=== PATIENT | female | born 2000 ===

== ENCOUNTER 2020-08-16 12:20 | Outpatient (CLI) | payer OTHER, SELFPAY ==
[2020-08-16 12:58] LABS: Influenza Control Valid (Valid)
[2020-08-17 15:21] LABS: SARS-CoV-2 RNA PCR Positive
== END 2020-08-16 12:21 | disposition home or self-care (01) ==
PROVIDERS: PCP Nurse Practitioner Family; Visit Provider Nurse Practitioner Family
DX: U07.1 COVID-19 (principal); J02.9 Acute pharyngitis, unspecified
CPT/HCPCS: 36415; 87081; 87635; 87804; 87880; C9803; U0003

== ENCOUNTER 2021-08-16 10:55 | Outpatient (CLI) | payer OTHER, SELFPAY ==
[2021-08-16 11:07] LABS: Basophils Absolute Auto 0.05 K/mm3 (0.00-0.10); Basophils Percent Auto 0.7 % (0.0-1.0); Eosinophils Percent Auto 1.5 % (1.0-6.0); Hematocrit 41.6 % (35.0-49.0); Hemoglobin 14.3 g/dL (12.0-15.0); Immature Granulocyte Absolute 0.02 K/mm3 (0.00-0.00); Immature Granulocyte Percent A 0.3 % (0.0-0.0); Lymphocytes Absolute Auto 2.48 K/mm3 (1.10-4.50); Lymphocytes Percent Auto 36.2 % (18.0-42.0); Mean Corpuscular HGB Conc 34.4 g/dL (32.0-36.0); Mean Platelet Volume 10.3 fl (9.2-11.8); Monocytes Absolute Auto 0.54 K/mm3 (0.10-0.90); Monocytes Percent Auto 7.9 % (2.0-11.0); Neutrophils Absolute Auto 3.7 K/mm3 (1.7-7.2); Neutrophils Percent Auto 53.4 % (50.0-70.0); Platelet Count Result 218 K/mm3 (150-420); Red Blood Count 4.62 M/mm3 (4.20-5.40); Red Cell Distribution Width 12.1 % (11.6-14.4); White Blood Count 6.9 K/mm3 (4.8-10.8)
[2021-08-16 12:15] LABS: Free T4 Free Thyroxine 0.99 ng/dL (0.76-1.46); Thyroid Stimulating Hormone 1.31 uIU/mL (0.36-3.74)
[2021-08-20 19:35] LABS: Vitamin D 25 Hydroxy 29 ng/mL (30-100)
== END 2021-08-16 10:56 | disposition home or self-care (01) ==
LOC: CHSLAB 10:58
PROVIDERS: Visit Provider Obstetrics & Gynecology Gynecology
DX: F41.9 Anxiety disorder, unspecified (principal); E55.9 Vitamin D deficiency, unspecified
CPT/HCPCS: 36415; 82306; 84439; 84443; 85025

== ENCOUNTER 2021-11-07 14:24 | Outpatient (CLI) | payer OTHER, SELFPAY | END 2021-11-07 14:25 | disposition home or self-care (01) | LOC: CHSLAB 14:25 | PROVIDERS: PCP Family Medicine; Visit Provider Family Medicine | DX: Z02.0 Encounter for examination for admission to educational institution (principal) | CPT/HCPCS: 36415; 86787 ==

== ENCOUNTER 2022-01-29 09:46 | Outpatient (CLI) | payer OTHER, SELFPAY ==
[2022-01-29 09:57] LABS: Hematocrit 39.2 % (35.0-49.0); Hemoglobin 13.1 g/dL (12.0-15.0); Mean Corpuscular HGB Conc 33.4 g/dL (32.0-36.0); Mean Corpuscular Hemoglobin 30.4 pg (27.0-31.0); Platelet Count Result 226 K/mm3 (150-420); Red Blood Count 4.31 M/mm3 (4.20-5.40); White Blood Count 6.4 K/mm3 (4.8-10.8)
[2022-01-29 10:58] LABS: Alanine Aminotransferase 20 U/L (14-59); Albumin Level 3.8 g/dL (3.4-5.0); Alkaline Phosphatase 50 U/L (46-116); Anion Gap 10 mmol/L (8-16); Aspartate Amino Transferase 12 U/L (15-37); Bilirubin,Total 0.3 mg/dL (0.00-1.00); Blood Urea Nitrogen 11 mg/dL (7-18); Calcium 8.8 mg/dL (8.5-10.1); Carbon Dioxide 26 mmol/L (21-32); Chloride 112 mmol/L (98-108); Creatine Kinase 86 U/L (26-192); Estimated Glomerular Filt Rate > 60; Ferritin 48 ng/mL (8-252); Folic Acid > 20.0 ng/mL (8.6->20); Glucose 84 mg/dL (70-99); Magnesium 1.8 mg/dL (1.8-2.4); Osmolality Calculated 304 mOsm/kg (285-295); Potassium 4.5 mmol/L (3.5-5.1); Sodium 148 mmol/L (136-145); Total Protein 6.9 g/dL (6.4-8.2); Vitamin B12 206 pg/mL (193-986)
[2022-01-29 11:28] LABS: Thyroid Stimulating Hormone Reflex 0.91 u/IU/mL (0.36-3.74)
== END 2022-01-29 09:47 | disposition home or self-care (01) ==
LOC: CHSLAB 09:48
PROVIDERS: PCP Family Medicine; Visit Provider Family Medicine
DX: M62.81 Muscle weakness (generalized) (principal); E11.9 Type 2 diabetes mellitus without complications; E53.8 Deficiency of other specified B group vitamins
CPT/HCPCS: 36415; 80053; 82550; 82607; 82728; 82746; 83735; 84443; 85027

== ENCOUNTER → 2022-10-16 10:37 | Outpatient (CLI) | payer OTHER, SELFPAY ==
--- NOTE | ~2022-10-16 | US_ITS ---
Pelvic ultrasound. Clinical History: Pelvic pain Technique: Realtime transabdominal and transvaginal scanning of the pelvis was performed. Color flow Doppler and Doppler spectral analysis were performed. Findings: The uterus is anteverted. The endometrial stripe has a thickness of 6 mm. No focal mass is identified. The right ovary measures 2.9 x 1.8 x 2.3 cm. No significant right ovarian or adnexal mass is seen. The left ovary measures 3.3 x 3.3 x 3.5 cm. Small left ovarian cysts are present. No distinct evidence for torsion. There is no evidence of free fluid in the cul de sac. Impression: No significant abnormality seen. Small left ovarian cysts are within normal limits given patient age, require no further follow-up. Reviewed, dictated and finalized at [facility]. [employer] Impression: No significant abnormality seen. Small left ovarian cysts are within normal lazar its given patient age, require no further follow-up.
== END ==
PROVIDERS: PCP Family Medicine; Visit Provider Advanced Practice Midwife
DX: R10.2 Pelvic and perineal pain (principal); N83.202 Unspecified ovarian cyst, left side
CPT/HCPCS: 76856

== ENCOUNTER 2022-12-17 11:45 | Outpatient (CLI) | payer OTHER, SELFPAY ==
--- NOTE | 2022-12-22 13:56 | P.PCNHOL_ITS ---
Holter/Event Monitor Holter/Event Monitor Date of procedure: 12/17/22 Holter/Event Procedure: 48 Hr Holter Monitor Indications: Syncope Conclusion: 1. 48 hour holter monitor on 12/17/22. 2. Underlying rhythm is sinus rhythm. HR range 53-150 bpm; average HR 79 bpm. HR at 150 bpm was at 14:54. 3. There is 1 premature supraventricular complex. No supraventricular tachycardia. 4. There are 27 premature ventricular complexes. No ventricular tachycardia. 5. No sinoatrial or atrioventricular blocks. No significant pauses greater than 2 seconds. 6. Patient reports symptoms of tiredness/jittery, chest pain/headache, fog giness, dizziness, weakness demonstrate sinus rhythm, HR range 60-105 bpm.
== END 2022-12-17 11:46 | disposition home or self-care (01) ==
LOC: CHSCARD 11:46
PROVIDERS: PCP Family Medicine; Visit Provider Family Medicine
DX: R55 Syncope and collapse (principal)
CPT/HCPCS: 93225; 93226

== ENCOUNTER 2022-12-19 14:21 | Outpatient (CLI) | payer OTHER, SELFPAY ==
--- NOTE | 2022-12-19 14:28 | ECHO_ITS ---
Patient Info Name: Lorena Sol Age: 22 years : 2000 Gender: Female Ht: 64 in Wt: 134 lbs BSA: 1.66 m2 HR: 84 bpm BP: 122 / 80 mmHg Technical Quality: Good Exam Date: 12/19/2022 3:16 PM Exam Location: [facility] Patient Status: Outpatient Admit Date: 12/19/2022 Staff Ordering Physician: Liban Carbajal DO Professor Of Biological Sciences: Ari Mei RDCS, RT Attending Provider: Liban Carbajal DO Referring Physician: Solomon MOFFETT; Exam Type: CA echo doppler color flow Study Info Indications R55 - Syncope and collapse Complete two-dimensional, color flow and Doppler transthoracic echocardiogram is performed. Strain analysis performed. Summary 1. Complete two-dimensional, color flow and Doppler transthoracic echocardiogram is performed. 2. Left ventricular chamber dimension is normal. 3. Left ventricular systolic function is normal, estimated at 60-65%. 4. The left ventricular diastolic function is grade I diastolic dysfunction. 5. Global longitudinal strain is normal at -17.6%. 6. There is trace mitral valve regurgitation. 7. There is trace tricuspid valve regurgitation. Left Ventricle Global longitudinal strain is normal at -17.6%. Tissue doppler E/e' is not performed. Left ventricular chamber dimension is normal. Left ventricular systolic function is normal, estimated at 60-65%. The left ventricular diastolic function is grade I diastolic dysfunction. Right Ventricle Right ventricular chamber dimension is normal. Right ventricular systolic function is normal. Left Atria Left atrial chamber dimension is normal. Right Atria Right atrial chamber dimension is normal. Aortic Valve The aortic valve is trileaflet. There is no aortic valve stenosis. There is no aortic valve regurgitation. Pulmonic Valve There is no pulmonic regurgitation. Mitral Valve There is no mitral valve stenosis. There is trace mitral valve regurgitation. Tricuspid Valve There is trace tricuspid valve regurgitation. RVSP is not calculated due to an inadequate TR jet. Pericardium/Pleural There is no pericardial effusion. Inferior Vena Cava Normal inferior vena cava with >50% collapse upon inspiration consistent with normal right atrial pressure, 5 mmHg. Aorta The aortic root size at the sinus of Valsalva is normal. Left Ventricular Outflow Tract Name Value Normal LVOT 2D LVOT Diameter 1.9 cm LVOT Doppler LVOT Peak Velocity 99 cm/s LVOT Peak Gradient 4 mmHg LVOT Mean Gradient 2 mmHg LVOT VTI 17 cm LVOT VTI/AV VTI Ratio 0.7 LVOT Stroke Volume 48 ml Tricuspid Valve Name Value Normal Estimated PAP/RSVP RA Pressure 5 mmHg <=5 Aortic
== END 2022-12-19 14:22 | disposition home or self-care (01) ==
LOC: CHSIMG 14:22
PROVIDERS: PCP Family Medicine; Visit Provider Family Medicine
DX: R55 Syncope and collapse (principal)
CPT/HCPCS: 93306

== ENCOUNTER 2023-01-14 12:30 | Outpatient (RCR) | payer OTHER, SELFPAY ==
--- NOTE | 2022-11-14 10:42 | PTOPEVAL1 ---
Assessment and note entered by Denisa Rodriguez DPT Evaluation Information Assessment Status Evaluation Subjective Information Pt reports pelvic pain. Has also been diagnosed with IBS. Has been having the feeling of menstrual cramps but all the time and it has gotten worse, at times feels stabbing. Pain worsens with movement even walking, sometimes has to take breaks after taking a few steps. Sits with a heating pad often. Reports she skips breakfast because eating seems to increase her pain. 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 Pain has been increasing over the past 3 months. Highest pain 7/10 and lowest 5/10. Urinates 5-6 times a day and none at night. Reports mild pain with urination and difficulty initiating. Denies urine leakage. BM every 2-3 days, typically no pain. Pt is sexually active, with pain. Has had pain with pelvic exam and tampon use seems to make her cramps worse as well. Pt has never been . Menstrual cycle is regular. States she had vestibulitis and got injections for it about 2.5 years ago. Reported Pain Level Pain Score 6: Self Report Assessment PT Clinical Summary The patient is presenting to skilled therapy with a several month history of increasing pelvic pain. She presents with significantly increased pelvic floor muscle tone, difficulty relaxing contraction , and pain with palpation. These muscular impairments are contributing to her pain with walking and other activities, as well as her difficulty initiating urine stream. She will benefit from therapy to address these impairments and safely return to prior level of function. Plan of Care Interventions Hot Pack/Cold Pack,Manual Therapy,Neuro Re- education,Patient/Caregiver Education,Therapeutic Activities,Therapeutic Exercise,Self-Care/Home Management PT Services Indicated Yes Treatment Frequency and 1 time a week for 4 weeks Duration These treatments will address the objective and functional deficits as defined above. The patient will be advanced safely and appropriately in order for the patient to progress towards his/her prior level of function. Additional exercises will be introduced and as well as a comprehensive home exercise program upon discharge, if needed, ?to ensure carryover of functional gains achieved in the clinic. This treatment plan has been reviewed and agreement upon by the patient.
--- NOTE | 2023-01-14 12:44 | PTOPDC ---
Assessment and note entered by Denisa Rodriguez DPT Evaluation Information Assessment Status Discharge Subjective Information Pt reports she is having menstrual cramps due to starting her cycle yesterday but they are only a 1 /10 currently. Highest pain in last week 1/10 after exercising and lowest 0/10. Reports feeling improvements with tampon use and intercourse. Has tried dilator set 2 times without issue. Reported Pain Level Pain Score 1: Self Report Assessment PT Clinical Summary The patient has made excellent progress in therapy . She reports pain only 1/10 highest in the last week and has been able to use tampons without issue. Due to her progress and independence with HEP, plan for discharge this date. She has been educated in how to progress independently and to follow up with MD and/or PT as needed. Plan of Care PT Services Indicated No
== END 2023-01-14 13:47 | disposition home or self-care (01) ==
LOC: ANHPT 12:30
PROVIDERS: PCP Nurse Practitioner Family; Visit Provider Obstetrics & Gynecology Gynecology
DX: R10.2 Pelvic and perineal pain (principal)
CPT/HCPCS: 97110; 97112; 97140; 97161

== ENCOUNTER 2024-11-10 11:36 | Emergency (ER) | payer OTHER, SELFPAY ==
[2024-11-10] VITALS (7 sets, daily range): BP systolic 100–107; BP diastolic 52–70; PULSE 58–86; RESP 14–17; TEMP 36.4–36.6; O2SAT 98–100
--- NOTE | ~2024-11-10 | CT_ITS ---
EXAMINATION: CT abdomen pelvis w con DATE: 11/10/2024 17:14 INDICATION: Nausea and vomiting. Abdominal pain. Recent surgery for endometriosis. TECHNIQUE: Computed tomography (CT) of the abdomen and pelvis was performed with 100 mL Omnipaque 350 intravenous contrast. Automated exposure control and iterative reconstruction technique were employe d. The dose-length product was 288.04 mGy-cm. COMPARISON: None. FINDINGS: The visualized portions of the lung bases are clear without pneumonia or pleural effusion. The heart size is normal. No pericardial effusion. There is free intraperitoneal gas, consistent with recent surgery. The liver demonstrates periportal edema. The spleen is normal. There is wall thicken ing of the gallbladder, likely interstitial edema. The gallbladder is normal in size. The pancreas, a drenal glands, and kidneys are normal. There are no dilated loops of bowel. The appendix is normal. T here is a 2.0 cm dominant follicle in left ovary. There is physiologic fluid in the pelvis. There are no pathologically enlarged lymph nodes. The bones are unremarkable. IMPRESSION: 1. Changes of recent surgery. No complication identified. Reviewed, dictated and finalized at location A. Y MACHINE OPERATOR
--- NOTE | 2024-11-10 12:24 | ED.NAVMDI ---
HPI - Nausea/Vomiting/Diarrhea General Chief complaint: Nausea/Vomiting/Diarrhea <Tarsha Rizvi PA-C - Last Filed: 11/11/24 17:21> Stated complaint: surgery 11/07, reports n/v <Tarsha Rizvi PA-C - Last Filed: 11/11/24 17:21> Time Seen by Provider: 11/10/24 12:24 <Tarsha Rizvi PA-C - Last Filed: 11/11/24 17:21> Focused HPI: This is a 24 year old female that presents to the ER for nausea and vomiting. Reports associated lightheadedness. Reports she had surgery for endometriosis at [place] on Thursday. Her doctor is Dr. Beltran. Reports a subjective fever. Denies hematuria. Reports some dysuria. GENERAL: Well-appearing, well-nourished, and in no acute distress. HEAD: Normocephalic, atraumatic. CHEST: Clear to auscultation. ?No respiratory distress. HEART: Regular rate and rhythm.? NEURO: ?Alert and oriented x3. Patient screened in triage and initial orders placed.? ?Additional care and disposition to be based upon?diagnostic testing and treatment. <Tarsha Rizvi PA-C - Last Filed: 11/11/24 17:21> Related Data Allergies/Adverse reactions: Allergies Allergy/AdvReac Type Severity Reaction Status Date / Time trazodone Allergy Rash Verified 11/10/24 17:58 <Tarsha Rizvi PA-C - Last Filed: 11/11/24 17:21> Review of Systems Review of Systems: All systems reviewed & are unremarkable except as noted in HPI and below <Tarsha Rizvi PA-C - Last Filed: 11/11/24 17:21> PMFSH Surgical History Surgical History: Surgical History No significant past surgical history <Tarsha Rizvi PA-C - Last Filed: 11/11/24 17:21> Social History Social History: Social History Smoking status: Never smoker Lack of Transportation: No Lack of Food: Never True Current Housing: I Have Housing Concerned About Future Housing: No Difficulty Paying Gas/Electric Bills: No Difficulty Paying for Meds: No Currently Unemployed: No Education: Bachelor's Degree Difficulty w/ Childcare or Family Care: No Living arrangements: with family <Tarsha Rizvi PA-C - Last Filed: 11/11/24 17:21> Exam Narrative: APPEARANCE: Well appearing, no pain, no distress, well-nourished. HEAD: normocephalic, atraumatic. EYES: PERRLA/EOMI, conjunctivae clear. NOSE: Normal no drainage EARS:TMS clear with good light reflex. THROAT: Pharynx clear, no exudate. NECK: Supple. No adenopathy, no masses. RESPIRATORY: Airway patent, respirations nonlabored. Clear to auscultation bilaterally, no rales, rhonchi, wheezing. CARDIOVASCULAR: Regular rate and rhythm without murmurs rubs or gallops. ABDOMINAL: Normal bowel sounds, diffuse lower abdominal tenderness to palpation MUSCULOSKELETAL: Moves all extremities. Strength/ROM intact, No edema, No calf tenderness. NEURO: Alert. Cranial nerves II through XII intact. Good gait. Good coordination SKIN: Warm, dry. Normal Color <Iggy Mclaughlin MD - Last Filed: 11/11/24 22:27> Course Vital Signs Vital signs: Vital Signs Temperature 97.6 F 11/10/24 11:39 Pulse Rate 83 11/10/24 11:39 Respiratory Rate 16 11/10/24 11:39 Blood Pressure 101/64 11/10/24 11:39 Pulse Oximetry 100 11/10/24 11:39 Temperature 97.9 F 11/10/24 16:11 Pulse Rate 86 11/10/24 19:22 Respiratory Rate 17 11/10/24 19:22 Blood Pressure 106/52 L 11/10/24 19:22 Pulse Oximetry 100 11/10/24 19:22 <Tarsha Rizvi PA-C - Last Filed: 11/11/24 17:21> Vital Signs Temperature 97.6 F 11/10/24 11:39 Pulse Rate 83 11/10/24 11:39 Respiratory Rate 16 11/10/24 11:39 Blood Pressure 101/64 11/10/24 11:39 Pulse Oximetry 100 11/10/24 11:39 Temperature 97.9 F 11/10/24 16:11 Pulse Rate 86 11/10/24 19:22 Respiratory Rate 17 11/10/24 19:22 Blood Pressure 106/52 L 11/10/24 19:22 Pulse Oximetry 100 11/10/24 19:22 <Iggy Mclaughlin MD - Last Filed: 11/11/24 22:27> MDM - Nausea/Vomiting/Diarrhea Lab Data Result diagrams: 11/10/24 12:27 11/10/24 12:27 <Tarsha Rizvi PA-C - Last Filed: 11/11/24 17:21> Labs: Lab Results 11/10/24 11/10/24 11/10/24 Range/Units 12:27 12:54 16:24 WBC 7.4 (4.5-10.0) K/mm3 RBC 4.57 (4.2-5.4) M/mm3 Hgb 13.6 (12.0-15.0) g/dL Hct 41.6 (37.0-47.0) % MCV 91.0 (80-100) fl MCH 29.8 (26-34) pg MCHC 32.7 (32-36) g/dl RDW 12.4 (11.5-14.5) % Plt Count 182 (150-375) k/mm3 MPV 10.7 H (7.4-10.4) fl Immature Gran % (Auto) 0.1 (0-0.5) % Neut % (Auto) 67.3 (45.5-73.1) % Lymph % (Auto) 25.7 (18.3-44.2) % [place] % (Auto) 4.7 (2.6-8.5) % Eos % (Auto) 1.5 (0-4.4) % Baso % (Auto) 0.7 (0.2-1.2) % Lymph # (Auto) 1.91 (0.9-3.2) K/mm3 [place] # (Auto) 0.4 (0.1-0.6) K/mm3 Eos # (Auto) 0.1 (0-0.3) K/mm3 Baso # (Auto) 0.1 (0.0-0.1) K/mm3 Abs Immat Gran (auto) 0.01 (0.00-0.031) K/mm3 Absolute Neuts (auto) 5.0 (1.3-6.7) K/mm3 Absolute Nucleated RBC 0.000 (0.0-0.012) K/mm3 Nucleated RBC % 0.0 (0.0-0.2) % Sodium 140 (137-145) mmol/L Potassium 4.2 (3.4-5.0) mmol/L Chloride 102 (98-107) mmol/L Carbon Dioxide 28 (22-30) mmol/L Anion Gap 10 (4-12) mmol/L BUN 8 (7-17) mg/dL Creatinine 0.73 (0.7-1.0) mg/dL Estim Creat Clear Calc 88 ml/min Estimated GFR > 60 (59 - ) Glucose 92 (65-110) mg/dL Calcium 9.3 (8.4-10.2) mg/dL Total Bilirubin 0.6 (0.2-1.3) mg/dL AST 34 (14-36) U/L ALT 39 H (6-35) U/L Alkaline Phosphatase 48 (38-126) U/L Total Protein 7.0 (6.3-8.2) g/dL Albumin 4.2 (3.5-5.1) g/dL Lipase 38 (23-300) U/L Urine Color Yellow (Yellow) Urine Appearance Clear (Clear) Urine pH 8.5 (5.0-9.0) Ur Specific [place] 1.009 (1.001-1.035) Urine Protein Negative (Negative) mg/dL Urine Glucose (UA) Negative (Negative) mg/dL Urine Ketones Negative (Negative) mg/dL Ur Blood (Man) Negative (Negative) Urine Nitrate Negative (Negative) Urine Bilirubin Negative (Negative) Urine Urobilinogen 0.2 (<2.0) mg/dL Add Ur Microanalysis Reviewed Leukocyte Esterase Rfl 1+ H (Negative) BARBARA/UL Urine RBC 0-2 (0-2) /hpf Urine WBC 0-5 (0-3) /hpf Ur Squamous Epith Cells Occasional (Few) /hpf Urine Bacteria None seen /hpf Urine Casts 0-2 POC Urine HCG, Qual Negative (Negative) <Tarsha Rizvi PA-C - Last Filed: 11/11/24 17:21> Lab Results 11/10/24 11/10/24 11/10/24 Range/Units 12:27 12:54 16:24 WBC 7.4 (4.5-10.0) K/mm3 RBC 4.57 (4.2-5.4) M/mm3 Hgb 13.6 (12.0-15.0) g/dL Hct 41.6 (37.0-47.0) % MCV 91.0 (80-100) fl MCH 29.8 (26-34) pg MCHC 32.7 (32-36) g/dl RDW 12.4 (11.5-14.5) % Plt Count 182 (150-375) k/mm3 MPV 10.7 H (7.4-10.4) fl Immature Gran % (Auto) 0.1 (0-0.5) % Neut % (Auto) 67.3 (45.5-73.1) % Lymph % (Auto) 25.7 (18.3-44.2) % [place] % (Auto) 4.7 (2.6-8.5) % Eos % (Auto) 1.5 (0-4.4) % Baso % (Auto) 0.7 (0.2-1.2) % Lymph # (Auto) 1.91 (0.9-3.2) K/mm3 [place] # (Auto) 0.4 (0.1-0.6) K/mm3 Eos # (Auto) 0.1 (0-0.3) K/mm3 Baso # (Auto) 0.1 (0.0-0.1) K/mm3 Abs Immat Gran (auto) 0.01 (0.00-0.031) K/mm3 Absolute Neuts (auto) 5.0 (1.3-6.7) K/mm3 Absolute Nucleated RBC 0.000 (0.0-0.012) K/mm3 Nucleated RBC % 0.0 (0.0-0.2) % Sodium 140 (137-145) mmol/L Potassium 4.2 (3.4-5.0) mmol/L Chloride 102 (98-107) mmol/L Carbon Dioxide 28 (22-30) mmol/L Anion Gap 10 (4-12) mmol/L BUN 8 (7-17) mg/dL Creatinine 0.73 (0.7-1.0) mg/dL Estim Creat Clear Calc 88 ml/min Estimated GFR > 60 (59 - ) Glucose 92 (65-110) mg/dL Calcium 9.3 (8.4-10.2) mg/dL Total Bilirubin 0.6 (0.2-1.3) mg/dL AST 34 (14-36) U/L ALT 39 H (6-35) U/L Alkaline Phosphatase 48 (38-126) U/L Total Protein 7.0 (6.3-8.2) g/dL Albumin 4.2 (3.5-5.1) g/dL Lipase 38 (23-300) U/L Urine Color Yellow (Yellow) Urine Appearance Clear (Clear) Urine pH 8.5 (5.0-9.0) Ur Specific [place] 1.009 (1.001-1.035) Urine Protein Negative (Negative) mg/dL Urine Glucose (UA) Negative (Negative) mg/dL Urine Ketones Negative (Negative) mg/dL Ur Blood (Man) Negative (Negative) Urine Nitrate Negative (Negative) Urine Bilirubin Negative (Negative) Urine Urobilinogen 0.2 (<2.0) mg/dL Add Ur Microanalysis Reviewed Leukocyte Esterase Rfl 1+ H (Negative) BARBARA/UL Urine RBC 0-2 (0-2) /hpf Urine WBC 0-5 (0-3) /hpf Ur Squamous Epith Cells Occasional (Few) /hpf Urine Bacteria None seen /hpf Urine Casts 0-2 POC Urine HCG, Qual Negative (Negative) <Iggy Mclaughlin MD - Last Filed: 11/11/24 22:27> Critical Care Time Critical Care Time Critical Care Time: No <Tarsha Rizvi PA-C - Last Filed: 11/11/24 17:21> Discharge Plan Discharge Clinical Impression: Nausea & vomiting Qualifiers: Vomiting type: unspecified Qualified Code(s): R11.2 - Nausea with vomiting, unspecified Abdominal pain Qualifiers: Abdominal location: unspecified location Qualified Code(s): R10.9 - Unspecified abdominal pain <Tarsha Rizvi PA-C - Last Filed: 11/11/24 17:21> Patient Disposition: Home, Self-Care <Tarsha Rizvi PA-C - Last Filed: 11/11/24 17:21> Condition: Stable <Tarsha Rizvi PA-C - Last Filed: 11/11/24 17:21> Instructions: Antibiotic Form, Clear Liquid Diet (ED), Acute Nausea and Vomiting (ED) <Tarsha Rizvi PA-C - Last Filed: 11/11/24 17:21> Additional Instructions: Zofran as needed for nausea control. Reglan as needed for additional nausea control. Clear liquid diet for the next 1-3 days. Home medications for pain control as directed. Have close follow-up with your surgeon. If you have any worsening symptoms then please call or return to the emergency department. <PANCHITO King Last Filed: 11/11/24 17:21> Patient Language: Latvian <Tarsha Rizvi PA-C - Last Filed: 11/11/24 17:21> Prescriptions: New ondansetron 4 mg tablet,disintegrating 4 mg PO Q8H PRN (Reason: nausea and vomiting) Qty: 14 0RF metoclopramide HCl [Reglan] 10 mg tablet 10 mg PO Q6H PRN (Reason: nausea and vomiting) Qty: 14 0RF No Action ondansetron 8 mg tablet,disintegrating 8 mg PO Q8H PRN (Reason: nausea and vomiting) Qty: 20 0RF hydroxyzine HCl 25 mg tablet See Rx Instructions .ROUTE .COMPLEX Qty: 30 0RF Dose Instruction: TAKE 1 OR 2 TABLETS BY MOUTH EVERY EIGHT HOURS NEEDED FOR ANXIETY Rx Instructions: TAKE 1 OR 2 TABLETS BY MOUTH EVERY EIGHT HOURS NEEDED FOR ANXIETY <Tarsha Rizvi PA-C - Last Filed: 11/11/24 17:21> Follow-up/Referrals: Liban Carbajal DO [Primary Care Provider] - <Tarsha Rizvi PA-C - Last Filed: 11/11/24 17:21>
--- OUTSIDE RECORDS SUMMARY | 2024-11-10 12:33 | XMS_ITS | Clinical Summary ---
Author Organization [facility] Address [address] [place] [address] Care Team Providers Care Content Designer Name Role Phone AndrewLiban leal Primary Care Provider [phone] Source Comments [facility],non-owned Affiliates and Associated Physician Practices is amultiple site organization consisting of ambulatory clinics and hospital sitesin [place], [place] and [place]. This disclosure is being madepursuant to the Care Everywhere program and may not contain all information available regarding this patient. Last updated 18.[facility] [employer] Allergies Active Allergy Reactions Criticality Noted Date Comments Trazodone Itching 07/29/2024 Medications * Be aware that medications may not be up to date on this document. Alwaysverify current medications with the patient. Medication Sig Dispensed Refills Start Date End Date Status cyclobenzaprine (Flexeril) 10 MG tablet Take 1 (one) tablet by mouth 3 times daily as needed for Muscle Spasms 30 tablet 08/10/2024 Active acetaminophen (Tylenol) 325 MG tablet Take 1 (one) tablet by mouth every 4 hours as needed for Fever or Pain Maximum allowable Acetaminophen amount = 4 Grams (4000 mg) / 24 hours. Active ibuprofen (Motrin) 200 MG tablet Take by mouth every 6 hours as needed for Pain Active norethindrone 0.35 MG tabletIndications :Dysmenorrhea Take 1 (one) tablet by mouth once daily 90 tablet 4 2024 Active Other Insert 1 suppository into the vagina every 12 hours as needed Valium/Baclofen 5/4 mg; place one suppository in the vagina as needed for pain, up to every 12 hours 5 Each 2024 Active ibuprofen (Motrin) 600 MG tablet Take 1 (one) tablet by mouth every 6 hours as needed for Pain 40 tablet 1 11/07/2024 Active acetaminophen (Tylenol) 500 MG capsule Take 2 (two) capsules by mouth every 6 hours as needed for Fever or Pain 30 capsule 11/07/2024 Active polyethylene glycol 3350 (Miralax) 17 GM/SCOOP powder Take 17 (seventeen) g by mouth once daily 289 g 11/07/2024 Active oxyCODONE, immediate release, (Roxicodone) 5 MG tabletIndications :Pelvic pain,Postoperativ e state Take 1 (one) tablet by mouth every 4 hours as needed for Pain 15 tablet 11/07/2024 Active Active Problems Problem Noted Date Diagnosed Date 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 Encounters Date Type Department Care Team Description 11/10/2024 Telephone [facility] - CHEMICAL PROCESSING SUPERVISOR [address], [facility] [address] [place] [address] Sharron Beltran MD Question 11/07/2024 7:29 AM [facility] Anesthesia Event [facility] [address] [place] [address] Forrest Cortez MD Callen, Isaac J, 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 BELTRAN 11/07/2024 5:57 AM PAPER CUP MACHINE TENDER - 11/07/2024 12:32 PM [facility] Hospital Encounter [facility] [address] [place] [address] Sharron Beltran MD Surgery General Discharge Disposition: Home or Self Care 11/07/2024 Travel 10/19/2024 Orders Only [facility] - CHEMICAL PROCESSING SUPERVISOR [address], [facility] [address] [place] [address] Shayla Wade Che, MD Pelvic pain ; Urinary frequency 2024 3:00 PM PAPER CUP MACHINE TENDER [facility] - CHEMICAL PROCESSING SUPERVISOR [address], [facility] [address] [place] [address] Sharron Beltran MD Dysmenorrhea (Primary Dx); Pelvic pain 2024 1:45 PM PAPER CUP MACHINE TENDER Procedure visit [facility] - CHEMICAL PROCESSING SUPERVISOR [address] [place] [address] Dysmenorrhea ; Dyspareunia, female; Chronic female pelvic pain 2024 Travel 08/11/2024 Telephone [facility] - CHEMICAL PROCESSING SUPERVISOR [address] [place] [address] Shayla Wade Che, MD Patient Requested Call 08/10/2024 2:00 PM CDT Office Visit [facility] - CHEMICAL PROCESSING SUPERVISOR [address], [facility] [address] [place] [address] Shayla Wade Che, MD Pelvic pain (Primary Dx); Dysmenorrhea; Urinary frequency; Myofascial pain 08/10/2024 Travel from Last 3 Months Family History Medical History Relation Name Comments Depression Brother Other Cousin CAD (Coronary Artery Disease) Father Diabetes; unknown type Father High Cholesterol Father Hypertension Father Other Maternal Aunt Other Maternal Grandmother endomet Cancer - Colon Maternal Great-Grandfather Other Mother endometrios Osteoporosis Paternal Grandmother Other Paternal Grandmother CVA Paternal Uncle Relation Name Status Comments Brother Cousin Alive Father Maternal Aunt Alive Maternal Grandmother Maternal Great-Grandfather Alive Mother Paternal Grandmother Paternal Uncle Alive Social History Tobacco Use Types Packs/Day Years Used Date Smoking Tobacco: Never Tobacco Cessation:Counseling Given: Yes Alcohol Use Standard Drinks/Week Comments Yes 0 (1 standard drink = 0.6 oz pur e alcohol) 3 AUDIT-C Answer Date Recorded Q1: How often do you have a drink containing alcohol? Never 11/07/2024 Q2: How many drinks containi ng alcohol do you have on a typical day when you are drinking? Patient does not drink Q3: How often do you have si x or more drinks on one occasion? Never 11/07/2024 PHQ-2 Answer Date Recorded Patient Health Questionnaire-2 Score 0 09/12/2024 Sex and Gender Information Value Date Recorded Sex Assigned at Not on file Gender Identity Not on file Sexual Orientation Not on file Last Filed Vital Signs Vital Sign Reading Time Taken Comments Blood Pressure 95/60 11/07/2024 12:00 PM PAPER CUP MACHINE TENDER Pulse 66 11/07/2024 12:00 PM PAPER CUP MACHINE TENDER Temperature 36.3 ??C (97.4 ??F) 11/07/2024 10:23 AM C Respiratory Rate 16 11/07/2024 12:00 PM PAPER CUP MACHINE TENDER Oxygen Saturation 99% 11/07/2024 12:00 PM PAPER CUP MACHINE TENDER Inhaled Oxygen Concentration - - Weight 60.3 kg (133 lb) 11/07/2024 7:10 AM PAPER CUP MACHINE TENDER Height 162.6 cm (5' 4 ) 11/07/2024 7:10 AM PAPER CUP MACHINE TENDER Body Mass Index 22.83 11/07/2024 7:10 AM PAPER CUP MACHINE TENDER Plan of Treatment Upcoming Encounters Date Type Department Care Team (Late st Contact Info) Description 11/24/2024 10:00 AM PAPER CUP MACHINE TENDER Office Visit [facility] - CHEMICAL PROCESSING SUPERVISOR [address], [facility] [address] [place] [phone] Sharron Beltran MD [address] [place] [address] Health Maintenance Due Date Last Done Comments PAP SMEAR 1999 HIV SCREENING 2014 HPV VACCINE (1 - 3-dose series) 2014 CHLAMYDIA/GONORRHEA SCREENING 2015 HEPATITIS C SCREENING 09/08/2017 DTAP/TDAP/TD VACCINES (1 - Tdap) 2018 HEPATITIS B VACCINE (1 of 3 - 19+ 3-dose series) 2018 COVID-19 VACCINE (3 - 2023-2 5 season) 2024 12/13/2020, 11/22/2020 INFLUENZA VACCINE (#1) 2024 , 07/08/2022 DEPRESSION SCREENING 10/12/2024 2024 ZOSTER VACCINE (1 of 2) 2049 HIB VACCINE Aged Out No longer eligi ble based on patient's age to complete this topic MENINGOCOCCAL (Group B) VACCINE Aged Out No longer eligible b ased on patient's age to complete this topic MENINGOCOCCAL VACCINE Aged Out No johnson colette eligible based on patient's age to complete this topic PNEUMOCOCCAL VACCINE Aged Out No long er eligible based on patient's age to complete this topic Procedures Procedure Name Priority Date/Time Associated Diagnosis Comments CARDIAC RHYTHM STRIP ORDER 11/09/2024 11:49 PM PAPER CUP MACHINE TENDER PATHOLOGY TISSUE EXAM (STL) Routine 11/07/2024 8:35 AM PAPER CUP MACHINE TENDER Diagnosis unknown HCG URINE QUAL POCT NOTIFICATION STAT 11/07/2024 8:01 AM PAPER CUP MACHINE TENDER Pelvic pain ENDOTRACHEAL TUBE NOTE Routine 11/07/2024 7:47 AM PAPER CUP MACHINE TENDER BLOOD TYPE VERIFICATION Routine 11/07/2024 7:16 AM PAPER CUP MACHINE TENDER TYPE + SCREEN PANEL STAT 11/07/2024 7 :10 AM PAPER CUP MACHINE TENDER Pelvic pain CBC W/O DIFFERENTIAL STAT 11/07/2024 7:10 AM PAPER CUP MACHINE TENDER Pelvic pain HCG URINE QUALITATIVE - POCT (IP) INTERFACED Routine 11/07/2024 7:01 AM PAPER CUP MACHINE TENDER FL CYSTOSCOPY,DIL BLADDER,GEN ANESTH 11/07/2024 6:40 AM PAPER CUP MACHINE TENDER Diagnosis unknown Special Needs DR. BELTRAN WORKING FIRST PER OFFICE (STEPHANIE)--10/26 KW FL LAP,DIAGNOSTIC ABDOMEN 11/07/2024 6:40 AM PAPER CUP MACHINE TENDER Diagnosis unknown Special Needs DR. BELTRAN WORKING FIRST PER OFFICE (STEPHANIE)--10/26 KW FL SONO EXAM, TRANSVAGINAL Routine 2024 2:14 PM PAPER CUP MACHINE TENDER Dysmenorrhea from Last 3 Months Results * CARDIAC RHYTHM STRIP ORDER (11/09/2024 11:49 PM PAPER CUP MACHINE TENDER) Narrative 11/09/2024 11:49 PM PAPER CUP MACHINE TENDER Ordered by an unspecified provider. Scanned Document CARDIAC SERVICES ORD ERABLES * PATHOLOGY TISSUE EXAM (STL) (11/07/2024 8:35 AM PAPER CUP MACHINE TENDER) Case Report Surgical Pathology Report ? Case: [id number] ? Authorizing Provider: ??Sharron Beltran MD ? Collected: ? 11/07/2024 08:35 AM ? Ordering Location: ? [facility] ? Received: ?11/07/2024 10:05 AM ? Pathologist: ? Eloisa Mera MD ? Specimens: ?? A) - Tissue, Right ovarian phosphate ? B) - Tissue, RIGHT PARARECTAL ? C) - Cyst, LEFT PARATUBAL CYST ? D) - Fossa, LEFT OVARIAN FOSSA ? 11/08/2024 9:[address] [facility] Final Diagnosis Peritoneum, right ovarian fossa, biopsy (A) - No histopathologic abnormality Peritoneum, right pararectal, biopsy (B) - Endometriosis Fallopian tube, left, paratubal cyst, excision (C) - Paratubal cyst Peritoneum, left ovarian fossa, biopsy (D) - Endometriosis 11/08/2024 9:[address] [facility] Clinical History The patient is a 24-year-old woman. Operative procedure: diagnostic laparoscopy, excision of endometriosis. 11/08/2024 9:[address] [facility] Gross Description The specimens are identified with the patient's name and date of . Received in formalin, specimen A, right ovarian phosp+ is a pink-brown tissue, 0.8 x 0.4 x 0.2 cm. Entirely submitted in cassette A1. Received in formalin, specimen B, right pararectal is a 2.5 x 1.4 x 0.3 cm pink-fisher soft tissue. Entirely submitted in cassette B1. Received in formalin, specimen C, left paratubal cyst is a simple cyst, 1 cm diameter with thin lining and translucent fluid. Entirely submitted in cassette C1. Received in formalin, specimen D, left ovarian magalys+ is a pink-fisher soft tissue, 1 x 0.4 x 0.3 cm. Entirely submitted in cassette D1. LJ 11/08/2024 9:[address] [facility] Microscopic Description Microscopic examination substantiates the above diagnosis. 11/08/2024 9:[address] [facility] Pathologist Location at [facility] 11/08/2024 9:[address] [facility] Disclaimer All histochemical and/or immunohistochemical results are interpreted with controls that demonstrate appropriate staining reactions before reporting results. Note on use of immunocytochemistry reagents: This test was developed and its performance characteristic determined by [facility], Department of Laboratory Medicine. It has not been cleared or approved by the U.S. Food and Drug Administration (FDA). The FDA has determined that such clearance or approval is not necessary. The test is used for clinical purpose. It should not be regarded as investigational or for research. This laboratory is certified to perform high complexity testing. The performance characteristics of the IHC/FANTA assays have been validated on formalin-fixed paraffin embedded tissues only. The assays have not been validated on decalcified tissues. Results should be interpreted with caution. 11/08/2024 9:52 AM PAPER CUP MACHINE TENDER [facility] Embedded Images 11/08/2024 9:52 AM PAPER CUP MACHINE TENDER [facility] Pathology/Cytology TISSUE SPECIMEN / Unknown 11/07/2024 8:35 AM PAPER CUP MACHINE TENDER 11/07/2024 10:05 AM PAPER CUP MACHINE TENDER Comment:Pre-op diagnosis: Diagnosis unknown [R69] Miscellaneous samples (specimen) TISSUE SPECIMEN / Unknown 11/07/2024 8:48 AM PAPER CUP MACHINE TENDER 11/07/2024 10:05 AM PAPER CUP MACHINE TENDER Comment:Pre-op diagnosis: Diagnosis unknown [R69] Miscellaneous samples (specimen) CYST TISSUE / Unknown 11/07/2024 8:50 AM PAPER CUP MACHINE TENDER 11/07/2024 10:05 AM PAPER CUP MACHINE TENDER Comment:Pre-op diagnosis: Diagnosis unknown [R69] Miscellaneous samples (specimen) MISCELLANEOUS SAMPLES / Unknown 11/07/2024 8:56 AM PAPER CUP MACHINE TENDER 11/07/2024 10:05 AM PAPER CUP MACHINE TENDER Comment:Pre-op diagnosis: Diagnosis unknown [R69] Sharron Beltran MD LAB - PATHOLOGY/CYTO LOGY ORDERABLES Performing Organization Address [facility] Co de Phone Number [facility] [address] [place] [address] * HCG URINE QUAL POCT NOTIFICATION (11/07/2024 8:01 AM PAPER CUP MACHINE TENDER) Comment Notification Label Only - See Separate Report 11/07/2024 8:[address] [facility] Urine URINE / Unknown 6:37 AM PAPER CUP MACHINE TENDER Sharron Beltran MD LAB - URINALYSIS ORD ERABLES Performing Organization Address [facility]/State/ZIP Co de Phone Number [facility] [address] [place] [address] * ETT LINE PERFORMABLE (11/07/2024 7:47 AM PAPER CUP MACHINE TENDER) Narrative Aubrey Burroughs APRN-CRNA - 11/07/2024 7:47 AM PAPER CUP MACHINE TENDER Aubrey Burroughs APRN-CRNA ? 11/07/2024 ??7:47 AM Endotracheal Tube Placement: ? Patient Location: OR. Procedure: intubation ([id number]) Procedure Section: ?? Sedation: under general anesthesia. Indications for Airway Management: ??anesthesia Induction: modified rapid sequence Patient Position: ??supine Mask Ventilation: easy. Blade Type: Cuevas Blade Size: 2 Laryngoscopy View: grade 1 (full cords) Intubation Adjuncts: stylet Tube: endotracheal tube Placement: oral Tube type: cuff - inflated Tube Size (MM): 7 Depth of Insertion (CM): 22 Measured From: teeth Cuff volume (mL): ??5 Cuff Inflated With: air Number of Attempts: 1. Placement Verified By: direct visualization, bilateral breath sounds, chest auscultation and CO2 monitor Tube secured with: ??adhesive tape. Dentition unchanged? ??Yes Staff Section ? Anesthesia Provider: Aubrey Burroughs APRN-CRNA, Performed the procedure Forrest Cortez MD GENERAL ANESTHESIA O RDERABLES * BLOOD TYPE VERIFICATION (11/07/2024 7:16 AM PAPER CUP MACHINE TENDER) ABO Rh O POS 11/07/2024 7:5 9 AM PAPER CUP MACHINE TENDER [facility] Blood Bank BLOOD SPECIMEN / Unknown Venipuncture / Unknown 11/07/2024 7:16 AM PAPER CUP MACHINE TENDER 11/07/2024 7:22 AM PAPER CUP MACHINE TENDER Shayla Wade MD LAB - BLOOD BANK ORD ERABLES [facility] [address] [place] [address], [facility] [phone] * TYPE + SCREEN PANEL (11/07/2024 7:10 AM PAPER CUP MACHINE TENDER) ABO Rh O POS 11/07/2024 7:59 AM PAPER CUP MACHINE TENDER [facility] Comment:No history; collect retype. Antibody Screen NEG 7:[address] [facility] Blood Bank BLOOD SPECIMEN / Unknown Venipuncture / Unknown 11/07/2024 7:10 AM PAPER CUP MACHINE TENDER 11/07/2024 7:14 AM PAPER CUP MACHINE TENDER Sharron Beltran MD LAB - BLOOD BANK ORD ERABLES [facility] [address] [phone] * CBC W/O DIFFERENTIAL (11/07/2024 7:10 AM PAPER CUP MACHINE TENDER) WBC 6.5 4.0 - 10.7 x10E9/L 11/07/2024 7:[address] [facility] RBC Count 4.55 3.90 - 5.20 x10E12/L 11/07/2024 7:[address] [facility] Hemoglobin 13.2 11.9 - 15.8 g/dL 11/07/2024 7:[address] [facility] Hematocrit 39.9 34.8 - 46.1 % 11/07/2024 7:[address] [facility] MCV 87.7 80.0 - 98.0 fL 11/07/2024 7:[address] [facility] MCH 29.0 26.7 - 33.6 pg 11/07/2024 7:[address] [facility] MCHC 33.1 31.7 - 36.3 g/dL 11/07/2024 7:[address] [facility] RDW-CV 12.4 11.3 - 14.8 % 11/07/2024 7:[address] [facility] Platelet Count 201 150 - 420 x10E9/L 11/07/2024 7:[address] [facility] MPV 10.7 7.8 - 11.4 fL 11/07/2024 7:[address] [facility] Blood BLOOD SPECIMEN / Unknown Venipuncture / Unknown 11/07/2024 7:10 AM PAPER CUP MACHINE TENDER 11/07/2024 7:15 AM PAPER CUP MACHINE TENDER Forrest Cortez MD LAB - HEMATOLOGY ORD ERABLES Performing Organization Address City/[facility]/ZIP Co de Phone Number [facility] [address] [place] [address] * HCG URINE QUALITATIVE - POCT (IP) INTERFACED (11/07/2024 7:01 AM PAPER CUP MACHINE TENDER) HCG Qual Urine Negative Negative 11/07/2024 7:07 AM PAPER CUP MACHINE TENDER [facility] Urine URINE / Unknown 11/07/2024 7 :01 AM PAPER CUP MACHINE TENDER 11/07/2024 7:07 AM PAPER CUP MACHINE TENDER Sharron Beltran MD LAB - POINT OF CARE ORDERABLES Performing Organization Address [facility] Co de Phone Number [facility] [address] [place] [phone] * FL SONO EXAM, TRANSVAGINAL (2024 2:14 PM PAPER CUP MACHINE TENDER) Linked Results Indication ======== Pelvic pain, dysmenorrhea, dyspareunia, suspicion for endometriosis Assessment LMP on 09/12/2024. Day of cycle 2 Uterus ====== Appears normal. Size 71 mm x 40 mm x 30 mm. Vol 44.2 cm? Endometrial thickness, total 2.3 mm Right Ovary ========= Appears normal, mobile. Size 29 mm x 13 mm x 15 mm. Vol 2.9 cm? Left Ovary ======== Appears normal, mobile. Size 32 mm x 17 mm x 16 mm. Vol 4.5 cm? Cul de Sac ========= Positive uterine sliding sign. No free fluid visualized Impression ========= Sonographically normal pelvis Positive uterine sliding sign Both ovaries appear normal and mobile Simple left adnexal cyst noted [id number], likely paratubal Coding ====== Procedures ? [id number]: US Transvaginal Non OB BitX PACS 2024 2:14 PM PAPER CUP MACHINE TENDER Narrative [facility] PACS - 2024 4:15 PM PAPER CUP MACHINE TENDER Sabrina Gillis ? 2024 ??4:15 PM Ultrasound has been completed. Acacia Ruano MD PROCEDURE/[facility] NOR SURGICAL ORDERABLES [facility] PACS from Last 3 Months Care Teams Content Designer Relationship Specialty Start Date End Date Liban Carbajal DO [address] [place] [address] PCP - General Family Medicine 08/10/24
--- OUTSIDE RECORDS SUMMARY | 2024-11-10 12:33 | XMS_ITS | Referral Summary ---
Author Organization [facility] Address [address] [facility] [place] [address] Care Team Providers Care Sausage Maker Name Role Phone Liban Carbajal DO Primary Care Provider [phone] Source Comments [facility],non-owned Affiliates and Associated Physician Practices is amultiple site organization consisting of ambulatory clinics and hospital sitesin [place], [place], [place] and [place]. This disclosure is being madepursuant to the Care Everywhere program and may not contain all information available regarding this patient. Last updated 18.[facility] [employer] Capital Encounters Date Type Department Care Team Description 11/10/2024 Telephone [facility] - WASTE COLLECTOR [address] [facility], [facility] [address] [place] [address] Sharron Beltran MD Question 11/07/2024 Travel 11/07/2024 7:29 AM SIGN CARPENTER Anesthesia Event [facility] [address] [place] [address] Forrest Cortez MD Callen, Isaac J, INSTRUCTOR PHYSICAL-CERTIFIED DENTAL ASSISTANT 11/07/2024 7:15 AM SIGN CARPENTER - 11/07/2024 9:45 AM SIGN CARPENTER Surgery [facility] [address] [place], [place] [phone] Sharron Beltran MD DIAGNOSTIC LAPAROSCOPY, EXCISION OF ENDOMETRIOSIS BY DR. BELTRAN 11/07/2024 5:57 AM SIGN CARPENTER - 11/07/2024 12:32 PM SIGN CARPENTER Hospital Encounter [facility] [address] [place] [address] Sharron Beltran MD Surgery General Discharge Disposition: Home or Self Care 10/19/2024 Orders Only [facility] - WASTE COLLECTOR [address], [facility] [address] [place] [phone] Shayla Wade Che, MD Pelvic pain ; Urinary frequency 2024 Travel 2024 3:00 PM SIGN CARPENTER Office Visit [facility] - WASTE COLLECTOR [address] [facility], [facility] [address] [place] [address] Sharron Beltran MD Dysmenorrhea (Primary Dx); Pelvic pain 2024 1:45 PM SIGN CARPENTER Procedure visit [facility] - WASTE COLLECTOR [address] [place] [address] [address] [place] [address] Dysmenorrhea ; Dyspareunia, female; Chronic female pelvic pain 08/11/2024 Telephone [facility] - WASTE COLLECTOR [address] [place] [address] [address] [place] [address] Shayla Wade Che, MD Patient Requested Call 08/10/2024 Travel 08/10/2024 2:00 PM CDT Office Visit [facility] - WASTE COLLECTOR [address] [place] [address], [facility] [address] [place] [address] Shayla Wade Che, MD Pelvic pain (Primary Dx); Dysmenorrhea; Urinary frequency; Myofascial pain from Last 3 Months Allergies Active Allergy Reactions Criticality Noted Date [...] Date Diagnosed Date 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 Social History Tobacco Use Types Packs/Day Years [...] Comments Blood Pressure 95/60 11/07/2024 12:00 PM SIGN CARPENTER Pulse 66 11/07/2024 12:00 PM SIGN CARPENTER Temperature 36.3 ??C (97.4 ??F) 11/07/2024 10:[address] Respiratory Rate 16 11/07/2024 12:00 PM SIGN CARPENTER Oxygen Saturation 99% 11/07/2024 12:00 PM SIGN CARPENTER Inhaled Oxygen Concentration - - Weight 60.3 kg (133 lb) 11/07/2024 7:10 AM SIGN CARPENTER Height 162.6 cm (5' 4 ) 11/07/2024 7:10 AM SIGN CARPENTER Body Mass Index 22.83 11/07/2024 7:10 AM SIGN CARPENTER Plan of Treatment Upcoming Encounters Date Type Department Care Team (Late st Contact Info) Description 11/24/2024 10:00 AM SIGN CARPENTER Office Visit [facility] - WASTE COLLECTOR [address], [facility] [address] [place] [address] Sharron Beltran MD [address] [place], [place] [phone] Procedures Procedure Name Priority Date/Time Associated Diagnosis Comments CARDIAC RHYTHM STRIP ORDER 11/09/2024 11:49 PM SIGN CARPENTER PATHOLOGY TISSUE EXAM (STL) Routine 11/07/2024 8:35 AM SIGN CARPENTER Diagnosis unknown HCG URINE QUAL POCT NOTIFICATION STAT 11/07/2024 8:01 AM SIGN CARPENTER Pelvic pain ENDOTRACHEAL TUBE NOTE Routine 11/07/2024 7:47 AM SIGN CARPENTER BLOOD TYPE VERIFICATION Routine 11/07/2024 7:16 AM SIGN CARPENTER TYPE + SCREEN PANEL STAT 11/07/2024 7 :10 AM SIGN CARPENTER Pelvic pain CBC W/O DIFFERENTIAL STAT 11/07/2024 7:10 AM SIGN CARPENTER Pelvic pain HCG URINE QUALITATIVE - POCT (IP) INTERFACED Routine 11/07/2024 7:01 AM SIGN CARPENTER WV CYSTOSCOPY,DIL BLADDER,GEN ANESTH 11/07/2024 6:40 AM SIGN CARPENTER Diagnosis unknown Special Needs DR. BELTRAN WORKING FIRST PER OFFICE (STEPHANIE)--10/26 KW WV LAP,DIAGNOSTIC ABDOMEN 11/07/2024 6:40 AM SIGN CARPENTER Diagnosis unknown Special Needs DR. BELTRAN WORKING FIRST PER OFFICE (STEPHANIE)--10/26 KW W[place] SONO EXAM, TRANSVAGINAL Routine 2024 2:14 PM SIGN CARPENTER Dysmenorrhea from Last 3 Months Results * CARDIAC RHYTHM STRIP ORDER (11/09/2024 11:49 PM SIGN CARPENTER) Narrative 11/09/2024 11:49 PM SIGN CARPENTER Ordered by an unspecified provider. Scanned Document CARDIAC SERVICES ORD ERABLES * PATHOLOGY TISSUE EXAM (STL) (11/07/2024 8:35 AM SIGN CARPENTER) Case Report Surgical Pathology Report ? Case: [id number] ? Authorizing Provider: ??Sharron Beltran MD ? Collected: ? 11/07/2024 08:35 AM ? Ordering Location: ? [facility] ? Received: ?11/07/2024 10:05 AM ? Pathologist: ? Eloisa Mera MD ? Specimens: ?? A) - Tissue, Right ovarian phosphate ? B) - Tissue, RIGHT PARARECTAL ? C) - Cyst, LEFT PARATUBAL CYST ? D) - Fossa, LEFT OVARIAN FOSSA ? 11/08/2024 9:52 AM [facility] Final Diagnosis Peritoneum, right ovarian fossa, biopsy (A) - No histopathologic abnormality Peritoneum, right pararectal, biopsy (B) - Endometriosis Fallopian tube, left, paratubal cyst, excision (C) - Paratubal cyst Peritoneum, left ovarian fossa, biopsy (D) - Endometriosis 11/08/2024 9:52 AM [facility] Clinical History The patient is a 24-year-old woman. Operative procedure: diagnostic laparoscopy, excision of endometriosis. 11/08/2024 9:52 AM [facility] Gross Description The specimens are identified [...] in cassette D1. LJ 11/08/2024 9:52 AM [facility] Microscopic Description Microscopic examination substantiates the above diagnosis. 11/08/2024 9:52 AM [facility] Pathologist Location at [facility] 11/08/2024 9:52 AM [facility] Disclaimer All histochemical and/or immunohistochemical results are interpreted with controls that demonstrate appropriate staining reactions before reporting results. Note on use of immunocytochemistry reagents: This test was developed and its performance characteristic determined by [facility], Department of Laboratory Medicine. It has not [...] be interpreted with caution. 11/08/2024 9:52 AM [facility] Embedded Images 11/08/2024 9:52 AM [facility] Pathology/Cytology TISSUE SPECIMEN / Unknown 11/07/2024 8:35 AM SIGN CARPENTER 11/07/2024 10:05 AM SIGN CARPENTER Comment:Pre-op diagnosis: Diagnosis unknown [R69] Miscellaneous samples (specimen) TISSUE SPECIMEN / Unknown 11/07/2024 8:48 AM SIGN CARPENTER 11/07/2024 10:05 AM SIGN CARPENTER Comment:Pre-op diagnosis: Diagnosis unknown [R69] Miscellaneous samples (specimen) CYST TISSUE / Unknown 11/07/2024 8:50 AM SIGN CARPENTER 11/07/2024 10:05 AM SIGN CARPENTER Comment:Pre-op diagnosis: Diagnosis unknown [R69] Miscellaneous samples (specimen) MISCELLANEOUS SAMPLES / Unknown 11/07/2024 8:56 AM SIGN CARPENTER 11/07/2024 10:05 AM SIGN CARPENTER Comment:Pre-op diagnosis: Diagnosis unknown [R69] Sharron Beltran MD LAB - PATHOLOGY/CYTO LOGY ORDERABLES [facility] [address] [place] [address] * HCG URINE QUAL POCT NOTIFICATION (11/07/2024 8:01 AM SIGN CARPENTER) Comment Notification Label Only - See Separate Report 11/07/2024 8:01 AM SIGN CARPENTER [facility] Urine URINE / Unknown 6:37 AM SIGN CARPENTER Sharron Beltran MD LAB - URINALYSIS ORD ERABLES Performing Organization Address [facility] Co de Phone Number [facility] [address] [place] [address] * ETT LINE PERFORMABLE (11/07/2024 7:47 AM SIGN CARPENTER) Narrative Aubrey Burroughs APRN-CRNA - 11/07/2024 7:47 AM SIGN CARPENTER Aubrey Burroughs APRN-CRNA ? 11/07/2024 ??7:47 AM Endotracheal Tube Placement: ? Patient Location: OR. Procedure: intubation ([address]115) Procedure Section: ?? Sedation: under general anesthesia. [...] * BLOOD TYPE VERIFICATION (11/07/2024 7:16 AM SIGN CARPENTER) ABO Rh O POS 11/07/2024 7:5 9 AM SIGN CARPENTER [facility] Blood Bank BLOOD SPECIMEN / Unknown Venipuncture / Unknown 11/07/2024 7:16 AM SIGN CARPENTER 11/07/2024 7:22 AM SIGN CARPENTER Shayla Wade MD LAB - BLOOD BANK ORD ERABLES [facility] [address] [place] [address] * TYPE + SCREEN PANEL (11/07/2024 7:10 AM SIGN CARPENTER) ABO Rh O POS 11/07/2024 7:59 AM SIGN CARPENTER [facility] Comment:No history; collect retype. Antibody Screen NEG 7:59 AM SIGN CARPENTER [facility] Blood Bank BLOOD SPECIMEN / Unknown Venipuncture / Unknown 11/07/2024 7:10 AM SIGN CARPENTER 11/07/2024 7:14 AM SIGN CARPENTER Sharron Beltran MD LAB - BLOOD BANK ORD ERABLES Performing Organization Address City/[facility]/ZIP Co de Phone Number [facility] [address] [place] [address] * CBC W/O DIFFERENTIAL (11/07/2024 7:10 AM SIGN CARPENTER) WBC 6.5 4.0 - 10.7 x10E9/L 11/07/2024 7:21 AM [facility] RBC Count 4.55 3.90 - 5.20 x10E12/L 11/07/2024 7:21 AM [facility] Hemoglobin 13.2 11.9 - 15.8 g/dL 11/07/2024 7:21 AM [facility] Hematocrit 39.9 34.8 - 46.1 % 11/07/2024 7:21 AM [facility] MCV 87.7 80.0 - 98.0 fL 11/07/2024 7:21 AM [facility] MCH 29.0 26.7 - 33.6 pg 11/07/2024 7:21 AM [facility] MCHC 33.1 31.7 - 36.3 g/dL 11/07/2024 7:21 AM [facility] RDW-CV 12.4 11.3 - 14.8 % 11/07/2024 7:21 AM [facility] Platelet Count 201 150 - 420 x10E9/L 11/07/2024 7:21 AM [facility] MPV 10.7 7.8 - 11.4 fL 11/07/2024 7:21 AM [facility] Blood BLOOD SPECIMEN / Unknown Venipuncture / Unknown 11/07/2024 7:10 AM SIGN CARPENTER 11/07/2024 7:15 AM SIGN CARPENTER Forrest Cortez MD LAB - HEMATOLOGY ORD ERABLES Performing Organization Address [facility]/ZIP Co de Phone Number [facility] [address] [place] [phone] * HCG URINE QUALITATIVE - POCT (IP) INTERFACED (11/07/2024 7:01 AM SIGN CARPENTER) HCG Qual Urine Negative Negative 11/07/2024 7:07 AM [facility] Urine URINE / Unknown 11/07/2024 7 :01 AM SIGN CARPENTER 11/07/2024 7:07 AM SIGN CARPENTER Sharron Beltran MD LAB - POINT OF CARE ORDERABLES Performing Organization Address [facility] Co de Phone Number [facility] [address] [place] [id number] * W[place] SONO EXAM, TRANSVAGINAL (2024 2:14 PM SIGN CARPENTER) Linked Results Indication ======== Pelvic pain, dysmenorrhea, [...] and mobile Simple left adnexal cyst noted [id number], likely paratubal Coding ====== Procedures ? 73730: US Transvaginal Non OB [employer] PACS 2024 2:14 PM SIGN CARPENTER Narrative [employer] PACS - 2024 4:15 PM SIGN CARPENTER Sabrina Gillis ? 2024 ??4:15 PM Ultrasound has been completed. Acacia Ruano MD PROCEDURE/ID NOR SURGICAL ORDERABLES [employer] PACS from Last 3 Months Care Teams Sausage Maker Relationship Specialty Start Date End Date Liban Carbajal DO [address] [place] [phone] PCP - General Family Medicine 08/10/24
--- OUTSIDE RECORDS SUMMARY | 2024-11-10 12:33 | XMS_ITS | Patient Health Summary ---
Author Organization [facility] Address [address] [facility] [place] [address] Care Team Providers Care Secret Code Expert Name Role Phone Liban Carbajal Primary Care Provider [phone] Note from [facility],non-owned Affiliates and Associated Physician Practices is amultiple site organization consisting of ambulatory clinics and hospital sitesin [place], [place] and [place]. This disclosure is being madepursuant to the Care Everywhere program and may not contain all information available regarding this patient. Last updated 18.[facility] [employer] Allergies * Trazodone(Itching) Medications * Be aware that medications may not be up to date on this document. Alwaysverify current medications with the patient. * cyclobenzaprine (Flexeril) 10 MG tablet(Started 08/10/2024) Take 1 (one) tablet by mouth 3 times daily as needed for Muscle Spasms * acetaminophen (Tylenol) 325 MG tablet Take 1 (one) tablet by mouth every 4 hours as needed for Fever or Pain Maximum allowable Acetaminophen amount = 4 Grams (4000 mg) / 24 hours. * ibuprofen (Motrin) 200 MG tablet Take by mouth every 6 hours as needed for Pain * norethindrone 0.35 MG tablet(Started 2024) Take 1 (one) tablet by mouth once daily 4 refills by 2025 * Other(Started 2024) Insert 1 suppository into the vagina every 12 hours as needed Valium/Baclofen 5/4 mg; place one suppository in the vagina as needed for pain, up to every 12 hours * ibuprofen (Motrin) 600 MG tablet(Started 11/07/2024) Take 1 (one) tablet by mouth every 6 hours as needed for Pain 1 refill by 11/07/2025 * acetaminophen (Tylenol) 500 MG capsule(Started 11/07/2024) Take 2 (two) capsules by mouth every 6 hours as needed for Fever or Pain * polyethylene glycol 3350 (Miralax) 17 GM/SCOOP powder(Started 11/07/2024) Take 17 (seventeen) g by mouth once daily * oxyCODONE, immediate release, (Roxicodone) 5 MG tablet(Started 11/07/2024) Take 1 (one) tablet by mouth every 4 hours as needed for Pain Active Problems Problem Noted Date Diagnosed Date [...] Comments Blood Pressure 95/60 11/07/2024 12:00 PM COOPERATIVE EDUCATION DIRECTOR Pulse 66 11/07/2024 12:00 PM COOPERATIVE EDUCATION DIRECTOR Temperature 36.3 ??C (97.4 ??F) 11/07/2024 10:[address] Respiratory Rate 16 11/07/2024 12:00 PM COOPERATIVE EDUCATION DIRECTOR Oxygen Saturation 99% 11/07/2024 12:00 PM COOPERATIVE EDUCATION DIRECTOR Inhaled Oxygen Concentration - - Weight 60.3 kg (133 lb) 11/07/2024 7:10 AM COOPERATIVE EDUCATION DIRECTOR Height 162.6 cm (5' 4 ) 11/07/2024 7:10 AM COOPERATIVE EDUCATION DIRECTOR Body Mass Index 22.83 11/07/2024 7:10 AM COOPERATIVE EDUCATION DIRECTOR Procedures * CARDIAC RHYTHM STRIP ORDER(Performed 11/09/2024) * PATHOLOGY TISSUE EXAM (STL)(Performed 11/07/2024) Performed for Diagnosis unknown * HCG URINE QUAL POCT NOTIFICATION(Performed 11/07/2024) Performed for Pelvic pain * ENDOTRACHEAL TUBE NOTE(Performed 11/07/2024) * BLOOD TYPE VERIFICATION(Performed 11/07/2024) * TYPE + SCREEN PANEL(Performed 11/07/2024) Performed for Pelvic pain * CBC W/O DIFFERENTIAL(Performed 11/07/2024) Performed for Pelvic pain * HCG URINE QUALITATIVE - POCT (IP) INTERFACED(Performed 11/07/2024) * NE CYSTOSCOPY,DIL BLADDER,GEN ANESTH(Performed 11/07/2024) Performed for Diagnosis unknown * NE LAP,DIAGNOSTIC ABDOMEN(Performed 11/07/2024) Performed for Diagnosis unknown * NE SONO EXAM, TRANSVAGINAL(Performed 2024) Performed for Dysmenorrhea Results * CARDIAC RHYTHM STRIP ORDER (11/09/2024 11:49 PM COOPERATIVE EDUCATION DIRECTOR) Narrative 11/09/2024 11:49 PM COOPERATIVE EDUCATION DIRECTOR Ordered by an unspecified provider. Scanned Document CARDIAC SERVICES ORD ERABLES * PATHOLOGY TISSUE EXAM (STL) (11/07/2024 8:35 AM COOPERATIVE EDUCATION DIRECTOR) Case Report Surgical Pathology Report ? Case: [id number] ? Authorizing Provider: ??Sharron Beltran MD ? Collected: ? 11/07/2024 08:35 AM ? Ordering Location: ? [facility] ? Received: ?11/07/2024 10:05 AM ? Pathologist: ? Eloisa Mera MD ? Specimens: ?? A) - Tissue, Right ovarian phosphate ? B) - Tissue, RIGHT PARARECTAL ? C) - Cyst, LEFT PARATUBAL CYST ? D) - Fossa, LEFT OVARIAN FOSSA ? 11/08/2024 9:52 AM [facility] Final Diagnosis Peritoneum, right ovarian fossa, biopsy (A) - No histopathologic abnormality Peritoneum, right pararectal, biopsy (B) - Endometriosis Fallopian tube, left, paratubal cyst, excision (C) - Paratubal cyst Peritoneum, left ovarian fossa, biopsy (D) - Endometriosis 11/08/2024 9:52 AM [facility] Clinical History The patient is a 24-year-old woman. Operative procedure: diagnostic laparoscopy, excision of endometriosis. 11/08/2024 9:52 AM [facility] Gross Description The specimens are [...] in cassette D1. LJ 11/08/2024 9:52 AM [facility] Microscopic Description Microscopic examination substantiates the above diagnosis. 11/08/2024 9:52 AM [facility] Pathologist Location at [facility] 11/08/2024 9:52 AM [facility] Disclaimer All histochemical and/or immunohistochemical [...] be interpreted with caution. 11/08/2024 9:52 AM [facility] Embedded Images 11/08/2024 9:52 AM [facility] Pathology/Cytology TISSUE SPECIMEN / Unknown 11/07/2024 8:35 AM COOPERATIVE EDUCATION DIRECTOR 11/07/2024 10:05 AM [facility] Comment:Pre-op diagnosis: Diagnosis unknown [R69] Miscellaneous samples (specimen) TISSUE SPECIMEN / Unknown 11/07/2024 8:48 AM COOPERATIVE EDUCATION DIRECTOR 11/07/2024 10:05 AM COOPERATIVE EDUCATION DIRECTOR Comment:Pre-op diagnosis: Diagnosis unknown [R69] Miscellaneous samples (specimen) CYST TISSUE / Unknown 11/07/2024 8:50 AM COOPERATIVE EDUCATION DIRECTOR 11/07/2024 10:05 AM COOPERATIVE EDUCATION DIRECTOR Comment:Pre-op diagnosis: Diagnosis unknown [R69] Miscellaneous samples (specimen) MISCELLANEOUS SAMPLES / Unknown 11/07/2024 8:56 AM COOPERATIVE EDUCATION DIRECTOR 11/07/2024 10:05 AM COOPERATIVE EDUCATION DIRECTOR Comment:Pre-op diagnosis: Diagnosis unknown [R69] Sharron Beltran MD LAB - PATHOLOGY/CYTO LOGY ORDERABLES Performing Organization Address [facility] Co de Phone Number [facility] [address] [place], [place] [phone] * HCG URINE QUAL POCT NOTIFICATION (11/07/2024 8:01 AM COOPERATIVE EDUCATION DIRECTOR) Comment Notification Label Only - See Separate Report 11/07/2024 8:01 AM COOPERATIVE EDUCATION DIRECTOR [facility] Urine URINE / Unknown 6:37 AM COOPERATIVE EDUCATION DIRECTOR Sharron Beltran MD LAB - URINALYSIS ORD ERABLES Performing Organization Address [facility] de Phone Number [facility] [address] [place] [address] * ETT LINE PERFORMABLE (11/07/2024 7:47 AM COOPERATIVE EDUCATION DIRECTOR) Narrative Aubrey Burroughs APRN-CRNA - 11/07/2024 7:47 AM COOPERATIVE EDUCATION DIRECTOR Aubrey Burroughs APRN-CRNA ? 11/07/2024 ??7:47 AM Endotracheal Tube Placement: ? Patient Location: OR. Procedure: intubation (02347) Procedure Section: ?? Sedation: under general anesthesia. [...] Staff Section ? Anesthesia Provider: Aubrey Burroughs APRN-VANNESSA, Performed the procedure Forrest Cortez MD GENERAL ANESTHESIA O RDERABLES * BLOOD TYPE VERIFICATION (11/07/2024 7:16 AM COOPERATIVE EDUCATION DIRECTOR) ABO Rh O POS 11/07/2024 7:5 9 AM COOPERATIVE EDUCATION DIRECTOR [facility] Blood Bank BLOOD SPECIMEN / Unknown Venipuncture / Unknown 11/07/2024 7:16 AM COOPERATIVE EDUCATION DIRECTOR 11/07/2024 7:22 AM COOPERATIVE EDUCATION DIRECTOR Shayla Wade MD LAB - BLOOD BANK ORD ERABLES Performing Organization Address City/[facility]/ZIP Co de Phone Number [facility] [address] [place] [address] * TYPE + SCREEN PANEL (11/07/2024 7:10 AM COOPERATIVE EDUCATION DIRECTOR) ABO Rh O POS 11/07/2024 7:59 AM COOPERATIVE EDUCATION DIRECTOR [facility] Comment:No history; collect retype. Antibody Screen NEG 7:59 AM COOPERATIVE EDUCATION DIRECTOR [facility] Blood Bank BLOOD SPECIMEN / Unknown Venipuncture / Unknown 11/07/2024 7:10 AM COOPERATIVE EDUCATION DIRECTOR 11/07/2024 7:14 AM COOPERATIVE EDUCATION DIRECTOR Sharron Beltran MD LAB - BLOOD BANK ORD ERABLES Performing Organization Address City/[facility]/ZIP Co de Phone Number [facility] [address] [place] [address] * CBC W/O DIFFERENTIAL (11/07/2024 7:10 AM COOPERATIVE EDUCATION DIRECTOR) WBC 6.5 4.0 - 10.7 x10E9/L 11/07/2024 7:21 AM COOPERATIVE EDUCATION DIRECTOR [facility] RBC Count 4.55 3.90 - 5.20 x10E12/L 11/07/2024 7:21 AM [facility] Hemoglobin 13.2 11.9 - 15.8 g/dL 11/07/2024 7:21 AM [facility] Hematocrit 39.9 34.8 - 46.1 % 11/07/2024 7:21 AM [facility] MCV 87.7 80.0 - 98.0 fL 11/07/2024 7:21 AM [facility] MCH 29.0 26.7 - 33.6 pg 11/07/2024 7:21 AM [facility] MCHC 33.1 31.7 - 36.3 g/dL 11/07/2024 7:21 AM [facility] RDW-CV 12.4 11.3 - 14.8 % 11/07/2024 7:21 AM [facility] Platelet Count 201 150 - 420 x10E9/L 11/07/2024 7:21 AM [facility] MPV 10.7 7.8 - 11.4 fL 11/07/2024 7:21 AM [facility] Blood BLOOD SPECIMEN / Unknown Venipuncture / Unknown 11/07/2024 7:10 AM COOPERATIVE EDUCATION DIRECTOR 11/07/2024 7:15 AM COOPERATIVE EDUCATION DIRECTOR Forrest Cortez MD LAB - HEMATOLOGY ORD ERABLES Performing Organization Address City/[facility]/ZIP Co de Phone Number [facility] [address] [place] [id number] * HCG URINE QUALITATIVE - POCT (IP) INTERFACED (11/07/2024 7:01 AM COOPERATIVE EDUCATION DIRECTOR) HCG Qual Urine Negative Negative 11/07/2024 7:07 AM [facility] Urine URINE / Unknown 11/07/2024 7 :01 AM COOPERATIVE EDUCATION DIRECTOR 11/07/2024 7:07 AM COOPERATIVE EDUCATION DIRECTOR Sharron Beltran MD LAB - POINT OF CARE ORDERABLES Performing Organization Address City/[facility]/ZIP Co de Phone Number [facility] [address] [place] [address] * NE SONO EXAM, TRANSVAGINAL (2024 2:14 PM COOPERATIVE EDUCATION DIRECTOR) Linked Results Indication ======== Pelvic pain, dysmenorrhea, [...] and mobile Simple left adnexal cyst noted [id number], likely paratubal Coding ====== Procedures ? 47015: US Transvaginal Non OB [facility] 2024 2:14 PM COOPERATIVE EDUCATION DIRECTOR Narrative [facility] [employer] PACS - 2024 4:15 PM COOPERATIVE EDUCATION DIRECTOR Sabrina Gillis ? 2024 ??4:15 PM Ultrasound has been completed. Acacia Ruano MD PROCEDURE/LA NOR SURGICAL ORDERABLES [facility] PACS Care Teams Secret Code Expert Relationship Specialty Start Date End Date Liban Carbajal DO [address] [place] [id number] PCP - General Family Medicine 08/10/24
--- OUTSIDE RECORDS SUMMARY | 2024-11-10 12:33 | XMS_ITS | Encounter Summary ---
Author Organization [facility] Address [address] [facility] [place] [address] Care Team Providers Care Ward Attendant Name Role Phone Liban Carbajal DO Primary Care Provider [phone] Reason for Visit * Reason Onset Date Comments Question 11/10/2024 Encounter Details Date Type Department Care Team (Late st Contact Info) Description 11/10/2024 Telephone [facility] - MUSICAL INSTRUMENTS ASSEMBLER [address], [facility] [address] [place] [address] Sharron Beltran MD [address] [place] [address] Question Social History Tobacco Use Types Packs/Day Years Used Date Smoking Tobacco: Never Alcohol Use Standard Drinks/Week Comments Yes 0 [...] on file Sexual Orientation Not on file documented as of this encounter Miscellaneous Notes * Telephone Encounter - Sharron Beltran MD - 11/10/2024 10:49 AM CST Called patient re: symptoms. Patient is POD#3 from laparoscopic excision of endometriosis and cystoscopy with hydrodistension. Reports dizziness, emesis and low grade fever in addition to sharp infraumbilical pain. Passing gas, but no bowel movement since Thursday morning. No URI symptoms. Given ongoing emesis and low grade fever, recommend proceeding to ER for evaluation. INTERFACE ARTIST * Telephone Encounter - Mecca Arenas RN - 11/10/2024 8:15 AM CST RN returned patient call. For the past few nights, she has had dizziness at night. This morning shewoke up feeling dizzy and nauseated, and had 1 episode of vomiting. Does report some chills and body aches, Tmax 99.4. No discharge, redness, or warmth around incision sites. Does endorse deep pain that pain meds only take the edge off. Is taking oxy, T&M. Does have a scope patch on and is due to take it off. RN advised that patient remove patch. Will send to MD MARQUES to advise. INTERFACE ARTIST * Telephone Encounter - Maria T Gomez - 11/10/2024 8:06 AM CST Patient calling wanting the nurse to call her back . She had surgery on Thu and this morning she woke up throwing up and dizzy and light headed .. Please contact # [phone] INTERFACE ARTIST documented in this encounter Plan of Treatment Upcoming Encounters Date Type Department Care Team (Late st Contact Info) Description 11/24/2024 10:00 AM USER INTERFACE ARTIST Office Visit [facility] - MUSICAL INSTRUMENTS ASSEMBLER [address], [facility] [address] [place] [address] Sharron Beltran MD [address] [place] [address] documented as of this encounter Visit Diagnoses Not on filedocumented in this encounter Care Teams Ward Attendant Relationship Specialty Start Date End Date Liban Carbajal DO [address] [place] [address] PCP - General Family Medicine 08/10/24 documented as of this encounter
[2024-11-10 12:35] LABS: Basophils Absolute Auto 0.1 K/mm3 (0.0-0.1); Basophils Percent Auto 0.7 % (0.2-1.2); Eosinophils Absolute Auto 0.1 K/mm3 (0-0.3); Eosinophils Percent Auto 1.5 % (0-4.4); Hematocrit 41.6 % (37.0-47.0); Hemoglobin 13.6 g/dL (12.0-15.0); Immature Granulocyte Absolute 0.01 K/mm3 (0.00-0.031); Immature Granulocyte Percent A 0.1 % (0-0.5); Lymphocytes Absolute Auto 1.91 K/mm3 (0.9-3.2); Lymphocytes Percent Auto 25.7 % (18.3-44.2); Mean Corpuscular HGB Conc 32.7 g/dl (32-36); Mean Corpuscular Hemoglobin 29.8 pg (26-34); Mean Platelet Volume 10.7 fl (7.4-10.4); Monocytes Absolute Auto 0.4 K/mm3 (0.1-0.6); Monocytes Percent Auto 4.7 % (2.6-8.5); Neutrophils Percent Auto 67.3 % (45.5-73.1); Platelet Count Result 182 k/mm3 (150-375); Red Blood Count 4.57 M/mm3 (4.2-5.4); Red Cell Distribution Width 12.4 % (11.5-14.5); White Blood Count 7.4 K/mm3 (4.5-10.0)
--- OUTSIDE RECORDS SUMMARY | 2024-11-10 12:36 | XMS_ITS | Clinical Summary ---
Author Organization [facility] Address [address] [place] [address]. 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 Gender Identity Not on file Sexual Orientation Not on file Last Filed Vital Signs Vital Sign Reading Time Taken Comments Blood Pressure 102/62 02/27/2014 12:09 PM CDT Pulse 68 02/27/2014 12:09 PM CDT Temperature - - Respiratory Rate - - Oxygen Saturation - - Inhaled Oxygen Concentration - - Weight 54.9 kg (121 lb) 02/27/2014 12:09 PM CDT Height 165.1 cm (5' 5 ) 02/27/2014 12:09 PM CDT Body Mass Index 20.14 02/27/2014 12:09 PM CDT Plan of Treatment Health Maintenance Due Date Last Done Comments Cervical Cancer Screening Pa p Smear (Age 21 to 29) Every 3 Years 1999 Cervical Cancer Screening 1999 Annual Physical 2002 HPV Vaccines (1 - 3-dose series) 2014 Hepatitis C 2017 DTaP, Tdap and Td Vaccines ( 1 - Tdap) 2018 Hepatitis B Vaccines (1 of 3 - 19+ 3-dose series) 2018 COVID-19 Vaccine (2023-2 5 season) 2024 Influenza Adult (#1) 2024 Meningococcal B Vaccine Aged Out No l onger eligible based on patient's age to complete this topic Meningococcal Vaccine Aged Out No johnson colette eligible based on patient's age to complete this topic Pneumococcal Vaccine: Pediat rics (0 to 5 Years) and At-Risk Patients (6 to 64 Years) Aged Out No longer eligible b ased on patient's age to complete this topic RSV Immunizations Under 20 Months Aged Out No longer eligible based on patient's age to complete this topic
[2024-11-10 12:44] LABS: Alanine Aminotransferase 39 U/L (6-35); Albumin Level 4.2 g/dL (3.5-5.1); Alkaline Phosphatase 48 U/L (38-126); Anion Gap 10 mmol/L (4-12); Aspartate Amino Transferase 34 U/L (14-36); Bilirubin,Total 0.6 mg/dL (0.2-1.3); Blood Urea Nitrogen 8 mg/dL (7-17); Calcium 9.3 mg/dL (8.4-10.2); Carbon Dioxide 28 mmol/L (22-30); Chloride 102 mmol/L (98-107); Estimated CRCL calculation 88 ml/min; Estimated Glomerular Filt Rate > 60; Glucose 92 mg/dL (65-110); Lipase 38 U/L (23-300); Potassium 4.2 mmol/L (3.4-5.0); Sodium 140 mmol/L (137-145)
[2024-11-10 13:31] LABS: Add Urine Microscopic? YES; Appearance Urine Clear (Clear); Bacteria Urine None Seen /hpf; Bilirubin Urine Negative (Negative); Blood Urine Negative (Negative); Color Urine Yellow (Yellow); Glucose Urine UA Negative (Negative); Ketones Urine Negative (Negative); Leukocyte Esterase Ur 1+ LEU/UL (Negative); Need Manual Microscopic Reviewed; Nitrate Urine Negative (Negative); Non Pathogenic Casts 0-2; Protein Urine Negative (Negative); RBC Urine 0-2 /hpf (0-2); Specific Grav Ur 1.009 (1.001-1.035); Squamous Epithelial Cell Urine Occasional /hpf (Few); Urobilinogen Urine 0.2 mg/dL (<2.0); WBC Urine 0-5 /hpf (0-3); pH Urine 8.5 (5.0-9.0)
--- OUTSIDE RECORDS SUMMARY | 2024-11-10 15:46 | XMS_ITS | Encounter Summary ---
Author Organization [facility] Address [address] [facility] [place] [address] Care Team Providers Care Jigger Machine Operator Name Role Phone Liban Carbajal DO Primary Care Provider [phone] Reason for Visit * Reason Onset Date Comments Question 11/10/2024 Encounter Details Date Type Department Care Team (Late st Contact Info) Description 11/10/2024 Telephone [facility] - BALLOON SANDER [address], [facility] [address] [place] [address] Sharron Beltran MD [address] [place] [address] Question Social History Tobacco Use [...] fever, recommend proceeding to ER for evaluation. WORKER * Telephone Encounter - Mecca Arenas RN [...] Will send to MD MARQUES to advise. WORKER * Telephone Encounter - Maria T Gomez - 11/10/2024 8:06 AM CST Patient calling wanting the nurse to call her back . She had surgery on Thu and this morning she woke up throwing up and dizzy and light headed .. Please contact # [phone] WORKER documented in this encounter Plan of Treatment Upcoming Encounters Date Type Department Care Team (Late st Contact Info) Description 11/24/2024 10:00 AM DROP WORKER Office Visit [facility] - BALLOON SANDER [address], [facility] [address] [place] [address] Sharron Beltran MD [address] [place] [address] documented as of this encounter Visit Diagnoses Not on filedocumented in this encounter Care Teams Jigger Machine Operator Relationship Specialty Start Date End Date Liban Carbajal DO [address] [place] [address] PCP - General Family Medicine 08/10/24 documented as of this encounter
--- OUTSIDE RECORDS SUMMARY | 2024-11-10 15:46 | XMS_ITS | Patient Health Summary ---
Author Organization [facility] Address [address] [facility] [place] [address] Care Team Providers Care Medical Technical Writer Name Role Phone Liban Carbajal Primary Care Provider [phone] Note from [facility],non-owned Affiliates and Associated Physician Practices is amultiple site organization consisting of ambulatory clinics and hospital sitesin [place], [place], [place] and [place]. This disclosure is being madepursuant to the Care Everywhere program and may not contain all information available regarding this patient. Last updated 18.[facility] [employer] Allergies * Trazodone(Itching) Medications * Be aware [...] Comments Blood Pressure 95/60 11/07/2024 12:00 PM [facility] Pulse 66 11/07/2024 12:00 PM [facility] Temperature 36.3 ??C (97.4 ??F) 11/07/2024 10:[address] Respiratory Rate 16 11/07/2024 12:00 PM [facility] Oxygen Saturation 99% 11/07/2024 12:00 PM [facility] Inhaled Oxygen Concentration - - Weight 60.3 kg (133 lb) 11/07/2024 7:10 AM [facility] Height 162.6 cm (5' 4 ) 11/07/2024 7:10 AM [facility] Body Mass Index 22.83 11/07/2024 7:10 AM [facility] Procedures * CARDIAC RHYTHM STRIP ORDER(Performed 11/09/2024) [...] QUALITATIVE - POCT (IP) INTERFACED(Performed 11/07/2024) * RI CYSTOSCOPY,DIL BLADDER,GEN ANESTH(Performed 11/07/2024) Performed for Diagnosis unknown * RI LAP,DIAGNOSTIC ABDOMEN(Performed 11/07/2024) Performed for Diagnosis unknown * RI SONO EXAM, TRANSVAGINAL(Performed 2024) Performed for Dysmenorrhea Results * CARDIAC RHYTHM STRIP ORDER (11/09/2024 11:49 PM [facility]) Narrative 11/09/2024 11:49 PM [facility] Ordered by an unspecified provider. Scanned Document CARDIAC SERVICES ORD ERABLES * PATHOLOGY TISSUE EXAM (STL) (11/07/2024 8:35 AM [facility]) Case Report Surgical Pathology Report ? Case: [id number] ? Authorizing Provider: ??Sharron Beltran MD ? Collected: ? 11/07/2024 08:35 AM ? Ordering Location: ? [facility] ? Received: ?11/07/2024 10:05 AM ? Pathologist: ? Eloisa Mera MD ? Specimens: ?? A) - Tissue, Right ovarian phosphate ? B) - Tissue, RIGHT PARARECTAL ? C) - Cyst, LEFT PARATUBAL CYST ? D) - Fossa, LEFT OVARIAN FOSSA ? 11/08/2024 9:52 AM [facility] Final Diagnosis Peritoneum, right ovarian fossa, biopsy (A) - No histopathologic abnormality Peritoneum, right pararectal, biopsy (B) - Endometriosis Fallopian tube, left, paratubal cyst, excision (C) - Paratubal cyst Peritoneum, left ovarian fossa, biopsy (D) - Endometriosis 11/08/2024 9:52 AM [facility] Clinical History The patient is a 24-year-old woman. Operative procedure: diagnostic laparoscopy, excision of endometriosis. 11/08/2024 9:52 AM [facility] Gross Description The specimens [...] in cassette D1. LJ 11/08/2024 9:52 AM [facility] Microscopic Description Microscopic examination substantiates the above diagnosis. 11/08/2024 9:52 AM [facility] Pathologist Location at [facility] 11/08/2024 9:52 AM [facility] Disclaimer All histochemical and/or immunohistochemical results are interpreted with controls that demonstrate appropriate staining reactions before reporting results. Note on use of immunocytochemistry reagents: This test was developed and its performance characteristic determined by [facility], Department of Laboratory Medicine. It has [...] be interpreted with caution. 11/08/2024 9:52 AM [facility] Embedded Images 11/08/2024 9:52 AM [facility] Pathology/Cytology TISSUE SPECIMEN / Unknown 11/07/2024 8:35 AM [facility] 11/07/2024 10:05 AM [facility] Comment:Pre-op diagnosis: Diagnosis unknown [R69] Miscellaneous samples (specimen) TISSUE SPECIMEN / Unknown 11/07/2024 8:48 AM [facility] 11/07/2024 10:05 AM [facility] Comment:Pre-op diagnosis: Diagnosis unknown [R69] Miscellaneous samples (specimen) CYST TISSUE / Unknown 11/07/2024 8:50 AM [facility] 11/07/2024 10:05 AM [facility] Comment:Pre-op diagnosis: Diagnosis unknown [R69] Miscellaneous samples (specimen) MISCELLANEOUS SAMPLES / Unknown 11/07/2024 8:56 AM [facility] 11/07/2024 10:05 AM [facility] Comment:Pre-op diagnosis: Diagnosis unknown [R69] Sharron Beltran MD LAB - PATHOLOGY/CYTO LOGY ORDERABLES Performing Organization Address [facility] Co de Phone Number [facility] [address] [place], [place] [id number] * HCG URINE QUAL POCT NOTIFICATION (11/07/2024 8:01 AM [facility]) Comment Notification Label Only - See Separate Report 11/07/2024 8:01 AM [facility] Urine URINE / Unknown 6:37 AM [facility] Sharron Beltran MD LAB - URINALYSIS ORD ERABLES Performing Organization Address [facility] de Phone Number [facility] [address] [place] [address] * ETT LINE PERFORMABLE (11/07/2024 7:47 AM [facility]) Narrative Aubrey Burroughs APRN-CRNA - 11/07/2024 7:47 AM [facility] Aubrey Burroughs APRN-CRNA ? 11/07/2024 ??7:47 AM Endotracheal Tube Placement: ? Patient Location: OR. Procedure: intubation (21938) Procedure Section: ?? Sedation: under general anesthesia. [...] * BLOOD TYPE VERIFICATION (11/07/2024 7:16 AM [facility]) ABO Rh O POS 11/07/2024 7:5 9 AM [facility] Blood Bank BLOOD SPECIMEN / Unknown Venipuncture / Unknown 11/07/2024 7:16 AM [facility] 11/07/2024 7:22 AM [facility] Shayla Wade MD LAB - BLOOD BANK ORD ERABLES Performing Organization Address City/[facility]/ZIP Co de Phone Number [facility] [address] [place] [address] * TYPE + SCREEN PANEL (11/07/2024 7:10 AM [facility]) ABO Rh O POS 11/07/2024 7:59 AM [facility] Comment:No history; collect retype. Antibody Screen NEG 7:59 AM [facility] Blood Bank BLOOD SPECIMEN / Unknown Venipuncture / Unknown 11/07/2024 7:10 AM [facility] 11/07/2024 7:14 AM [facility] Sharron Beltran MD LAB - BLOOD BANK ORD ERABLES Performing Organization Address City/[facility]/ZIP Co de Phone Number [facility] [address] [place] [address] * CBC W/O DIFFERENTIAL (11/07/2024 7:10 AM [facility]) WBC 6.5 4.0 - 10.7 x10E9/L 11/07/2024 7:21 AM [facility] RBC Count 4.55 3.90 - 5.20 x10E12/L 11/07/2024 7:21 AM [facility] Hemoglobin 13.2 11.9 - 15.8 g/dL 11/07/2024 7:21 AM [facility] Hematocrit 39.9 34.8 - 46.1 % 11/07/2024 7:21 AM [facility] MCV 87.7 80.0 - 98.0 fL 11/07/2024 7:21 AM [facility] MCH 29.0 26.7 - 33.6 pg 11/07/2024 7:21 AM [facility] MCHC 33.1 31.7 - 36.3 g/dL 11/07/2024 7:21 AM [facility] RDW-CV 12.4 11.3 - 14.8 % 11/07/2024 7:21 AM [facility] Platelet Count 201 150 - 420 x10E9/L 11/07/2024 7:21 AM [facility] MPV 10.7 7.8 - 11.4 fL 11/07/2024 7:21 AM [facility] Blood BLOOD SPECIMEN / Unknown Venipuncture / Unknown 11/07/2024 7:10 AM [facility] 11/07/2024 7:15 AM [facility] Forrest Cortez MD LAB - HEMATOLOGY ORD ERABLES Performing Organization Address City/[facility]/ZIP Co de Phone Number [facility] [address] [place] [address] * HCG URINE QUALITATIVE - POCT (IP) INTERFACED (11/07/2024 7:01 AM [facility]) HCG Qual Urine Negative Negative 11/07/2024 7:07 AM [facility] Urine URINE / Unknown 11/07/2024 7 :01 AM [facility] 11/07/2024 7:07 AM [facility] Sharron Beltran MD LAB - POINT OF CARE ORDERABLES Performing Organization Address City/[facility]/ZIP Co de Phone Number [facility] [address] [place] [address] * RI SONO EXAM, TRANSVAGINAL (2024 2:14 PM [facility]) Linked Results Indication ======== Pelvic pain, dysmenorrhea, [...] and mobile Simple left adnexal cyst noted [id number], likely paratubal Coding ====== Procedures ? [id number]: US Transvaginal Non OB [facility] [employer] 2024 2:14 PM [facility] Narrative [facility] [employer] [facility] - 2024 4:15 PM [facility] Sabrina Gillis ? 2024 ??4:15 PM Ultrasound has been completed. Acacia Ruano MD PROCEDURE/CO NOR SURGICAL ORDERABLES [facility] [employer] [facility] Care Teams Medical Technical Writer Relationship Specialty Start Date End Date Lbian Carbajal DO [address] [place] [address] PCP - General Family Medicine 08/10/24
--- OUTSIDE RECORDS SUMMARY | 2024-11-10 15:46 | XMS_ITS | Clinical Summary ---
Author Organization [facility] Address [address] [place] [address] Care Team Providers Care Meat Products Demonstrator Name Role Phone AndrewLiban leal Primary Care Provider [phone] Source Comments [facility],non-owned Affiliates and Associated Physician Practices is amultiple site organization consisting of ambulatory clinics and hospital sitesin [place], [place], [place] and [place]. This disclosure is being madepursuant to the Care Everywhere program and may not contain all information available regarding this patient. Last updated 18.[facility] [employer] Allergies Active Allergy Reactions Criticality Noted Date [...] Description 11/10/2024 Telephone [facility] - COAL GASIFICATION TECHNICIAN [address], [facility] [address] [place] [address] Sharron Beltran MD Question 11/07/2024 7:29 AM [facility] Anesthesia Event [facility] [address] [place] [id number] Forrest Cortez MD Callen, Isaac J, HYDROMETER FINISHER-FINAL ARMATURE TESTER 11/07/2024 7:15 AM CDL PROGRAM COORDINATOR - 11/07/2024 9:45 AM [facility] Surgery [facility] [address] [place] [id number] Sharron Beltran MD DIAGNOSTIC LAPAROSCOPY, EXCISION OF ENDOMETRIOSIS BY DR. BELTRAN 11/07/2024 5:57 AM CDL PROGRAM COORDINATOR - 11/07/2024 12:32 PM [facility] Hospital Encounter [facility] [address] [place] [id number] Sharron Beltran MD Surgery General Discharge Disposition: Home or Self Care 11/07/2024 Travel 10/19/2024 Orders Only [facility] - COAL GASIFICATION TECHNICIAN [address], [facility] [address] [place] [address] Shayla Wade Che, MD Pelvic pain ; Urinary frequency 2024 3:00 PM CDL PROGRAM COORDINATOR [facility] - COAL GASIFICATION TECHNICIAN [address], [facility] [address] [place] [address] Sharron Beltran MD Dysmenorrhea (Primary Dx); Pelvic pain 2024 1:45 PM CDL PROGRAM COORDINATOR Procedure visit [facility] - COAL GASIFICATION TECHNICIAN [address] [place] [address] Dysmenorrhea ; Dyspareunia, female; Chronic female pelvic pain 2024 Travel 08/11/2024 Telephone [facility] - COAL GASIFICATION TECHNICIAN [address] [place] [address] Shayla Wade Che, MD Patient Requested Call 08/10/2024 2:00 PM CDT Office Visit [facility] - COAL GASIFICATION TECHNICIAN [address], [facility] [address] [place] [address] Shayla Wade Che, MD Pelvic [...] Comments Blood Pressure 95/60 11/07/2024 12:00 PM CDL PROGRAM COORDINATOR Pulse 66 11/07/2024 12:00 PM CDL PROGRAM COORDINATOR Temperature 36.3 ??C (97.4 ??F) 11/07/2024 10:23 AM C Respiratory Rate 16 11/07/2024 12:00 PM CDL PROGRAM COORDINATOR Oxygen Saturation 99% 11/07/2024 12:00 PM CDL PROGRAM COORDINATOR Inhaled Oxygen Concentration - - Weight 60.3 kg (133 lb) 11/07/2024 7:10 AM CDL PROGRAM COORDINATOR Height 162.6 cm (5' 4 ) 11/07/2024 7:10 AM CDL PROGRAM COORDINATOR Body Mass Index 22.83 11/07/2024 7:10 AM CDL PROGRAM COORDINATOR Plan of Treatment Upcoming Encounters Date Type Department Care Team (Late st Contact Info) Description 11/24/2024 10:00 AM CDL PROGRAM COORDINATOR Office Visit [facility] - COAL GASIFICATION TECHNICIAN [address], [facility] [address] [place] [phone] Sharron Beltran MD [address] [place] [address] Health Maintenance Due Date Last Done Comments [...] CARDIAC RHYTHM STRIP ORDER 11/09/2024 11:49 PM CDL PROGRAM COORDINATOR PATHOLOGY TISSUE EXAM (STL) Routine 11/07/2024 8:35 AM CDL PROGRAM COORDINATOR Diagnosis unknown HCG URINE QUAL POCT NOTIFICATION STAT 11/07/2024 8:01 AM CDL PROGRAM COORDINATOR Pelvic pain ENDOTRACHEAL TUBE NOTE Routine 11/07/2024 7:47 AM CDL PROGRAM COORDINATOR BLOOD TYPE VERIFICATION Routine 11/07/2024 7:16 AM CDL PROGRAM COORDINATOR TYPE + SCREEN PANEL STAT 11/07/2024 7 :10 AM CDL PROGRAM COORDINATOR Pelvic pain CBC W/O DIFFERENTIAL STAT 11/07/2024 7:10 AM CDL PROGRAM COORDINATOR Pelvic pain HCG URINE QUALITATIVE - POCT (IP) INTERFACED Routine 11/07/2024 7:01 AM CDL PROGRAM COORDINATOR KS CYSTOSCOPY,DIL BLADDER,GEN ANESTH 11/07/2024 6:40 AM CDL PROGRAM COORDINATOR Diagnosis unknown Special Needs DR. BELTRAN WORKING FIRST PER OFFICE (STEPHANIE)--10/26 KW KS LAP,DIAGNOSTIC ABDOMEN 11/07/2024 6:40 AM CDL PROGRAM COORDINATOR Diagnosis unknown Special Needs DR. BELTRAN WORKING FIRST PER OFFICE (STEPHANIE)--10/26 KW KS SONO EXAM, TRANSVAGINAL Routine 2024 2:14 PM CDL PROGRAM COORDINATOR Dysmenorrhea from Last 3 Months Results * CARDIAC RHYTHM STRIP ORDER (11/09/2024 11:49 PM CDL PROGRAM COORDINATOR) Narrative 11/09/2024 11:49 PM CDL PROGRAM COORDINATOR Ordered by an unspecified provider. Scanned Document CARDIAC SERVICES ORD ERABLES * PATHOLOGY TISSUE EXAM (STL) (11/07/2024 8:35 AM CDL PROGRAM COORDINATOR) Case Report Surgical Pathology Report ? Case: [id number] ? Authorizing Provider: ??Sharron Beltran MD ? Collected: ? 11/07/2024 08:35 AM ? Ordering Location: ? [facility] ? Received: ?11/07/2024 10:05 AM ? Pathologist: ? Eloisa Mera MD ? Specimens: ?? A) - Tissue, Right ovarian phosphate ? B) - Tissue, RIGHT PARARECTAL ? C) - Cyst, LEFT PARATUBAL CYST ? D) - Fossa, LEFT OVARIAN FOSSA ? 11/08/2024 9:[address] [facility] Final Diagnosis Peritoneum, right ovarian fossa, biopsy (A) - No histopathologic abnormality Peritoneum, right pararectal, biopsy (B) - Endometriosis Fallopian tube, left, paratubal cyst, excision (C) - Paratubal cyst Peritoneum, left ovarian fossa, biopsy (D) - Endometriosis 11/08/2024 9:[address] [facility] Clinical History The patient is a 24-year-old woman. Operative procedure: diagnostic laparoscopy, excision of endometriosis. 11/08/2024 9:[address] [facility] Gross Description The specimens [...] cassette D1. LJ 11/08/2024 9:[address] [facility] Microscopic Description Microscopic examination substantiates the above diagnosis. 11/08/2024 9:[address] [facility] Pathologist Location at [facility] 11/08/2024 9:[address] [facility] Disclaimer All histochemical and/or immunohistochemical results are interpreted with controls that demonstrate appropriate staining reactions before reporting results. Note on use of immunocytochemistry reagents: This test was developed and its performance characteristic determined by [facility], Department of Laboratory Medicine. It has not [...] be interpreted with caution. 11/08/2024 9:52 AM CDL PROGRAM COORDINATOR [facility] Embedded Images 11/08/2024 9:52 AM CDL PROGRAM COORDINATOR [facility] Pathology/Cytology TISSUE SPECIMEN / Unknown 11/07/2024 8:35 AM CDL PROGRAM COORDINATOR 11/07/2024 10:05 AM CDL PROGRAM COORDINATOR Comment:Pre-op diagnosis: Diagnosis unknown [R69] Miscellaneous samples (specimen) TISSUE SPECIMEN / Unknown 11/07/2024 8:48 AM CDL PROGRAM COORDINATOR 11/07/2024 10:05 AM CDL PROGRAM COORDINATOR Comment:Pre-op diagnosis: Diagnosis unknown [R69] Miscellaneous samples (specimen) CYST TISSUE / Unknown 11/07/2024 8:50 AM CDL PROGRAM COORDINATOR 11/07/2024 10:05 AM CDL PROGRAM COORDINATOR Comment:Pre-op diagnosis: Diagnosis unknown [R69] Miscellaneous samples (specimen) MISCELLANEOUS SAMPLES / Unknown 11/07/2024 8:56 AM CDL PROGRAM COORDINATOR 11/07/2024 10:05 AM CDL PROGRAM COORDINATOR Comment:Pre-op diagnosis: Diagnosis unknown [R69] Sharron Beltran MD LAB - PATHOLOGY/CYTO LOGY ORDERABLES Performing Organization Address [facility] Co de Phone Number [facility] [address] [place] [address] * HCG URINE QUAL POCT NOTIFICATION (11/07/2024 8:01 AM CDL PROGRAM COORDINATOR) Comment Notification Label Only - See Separate Report 11/07/2024 8:[address] [facility] Urine URINE / Unknown 6:37 AM CDL PROGRAM COORDINATOR Sharron Beltran MD LAB - URINALYSIS ORD ERABLES Performing Organization Address [facility]/State/ZIP Co de Phone Number [facility] [address] [place] [address] * ETT LINE PERFORMABLE (11/07/2024 7:47 AM CDL PROGRAM COORDINATOR) Narrative Aubrey Burroughs APRN-CRNA - 11/07/2024 7:47 AM CDL PROGRAM COORDINATOR Aubrey Burroughs APRN-CRNA ? 11/07/2024 ??7:47 AM Endotracheal Tube Placement: ? Patient Location: OR. Procedure: intubation (17600) Procedure Section: ?? Sedation: under general anesthesia. [...] * BLOOD TYPE VERIFICATION (11/07/2024 7:16 AM CDL PROGRAM COORDINATOR) ABO Rh O POS 11/07/2024 7:5 9 AM CDL PROGRAM COORDINATOR [facility] Blood Bank BLOOD SPECIMEN / Unknown Venipuncture / Unknown 11/07/2024 7:16 AM CDL PROGRAM COORDINATOR 11/07/2024 7:22 AM CDL PROGRAM COORDINATOR Shayla Wade MD LAB - BLOOD BANK ORD ERABLES [facility] [address] [place] [address], [facility] [phone] * TYPE + SCREEN PANEL (11/07/2024 7:10 AM CDL PROGRAM COORDINATOR) ABO Rh O POS 11/07/2024 7:59 AM CDL PROGRAM COORDINATOR [facility] Comment:No history; collect retype. Antibody Screen NEG 7:[address] [facility] Blood Bank BLOOD SPECIMEN / Unknown Venipuncture / Unknown 11/07/2024 7:10 AM CDL PROGRAM COORDINATOR 11/07/2024 7:14 AM CDL PROGRAM COORDINATOR Sharron Beltran MD LAB - BLOOD BANK ORD ERABLES [facility] [address] [phone] * CBC W/O DIFFERENTIAL (11/07/2024 7:10 AM CDL PROGRAM COORDINATOR) WBC 6.5 4.0 - 10.7 x10E9/L 11/07/2024 7:[address] [facility] RBC Count 4.55 3.90 - 5.20 x10E12/L 11/07/2024 7:[address] [facility] Hemoglobin 13.2 11.9 - 15.8 g/dL 11/07/2024 7:[address] [facility] Hematocrit 39.9 34.8 - 46.1 % 11/07/2024 7:[address] [facility] MCV 87.7 80.0 - 98.0 fL 11/07/2024 7:[address] [facility] MCH 29.0 26.7 - 33.6 pg 11/07/2024 7:[address] [facility] MCHC 33.1 31.7 - 36.3 g/dL 11/07/2024 7:[address] [facility] RDW-CV 12.4 11.3 - 14.8 % 11/07/2024 7:[address] [facility] Platelet Count 201 150 - 420 x10E9/L 11/07/2024 7:[address] [facility] MPV 10.7 7.8 - 11.4 fL 11/07/2024 7:[address] [facility] Blood BLOOD SPECIMEN / Unknown Venipuncture / Unknown 11/07/2024 7:10 AM CDL PROGRAM COORDINATOR 11/07/2024 7:15 AM CDL PROGRAM COORDINATOR Forrest Cortez MD LAB - HEMATOLOGY ORD ERABLES Performing Organization Address City/[facility]/ZIP Co de Phone Number [facility] [address] [place] [address] * HCG URINE QUALITATIVE - POCT (IP) INTERFACED (11/07/2024 7:01 AM CDL PROGRAM COORDINATOR) HCG Qual Urine Negative Negative 11/07/2024 7:07 AM CDL PROGRAM COORDINATOR [facility] Urine URINE / Unknown 11/07/2024 7 :01 AM CDL PROGRAM COORDINATOR 11/07/2024 7:07 AM CDL PROGRAM COORDINATOR Sharron Beltran MD LAB - POINT OF CARE ORDERABLES Performing Organization Address [facility] Co de Phone Number [facility] [address] [place] [phone] * [place] SONO EXAM, TRANSVAGINAL (2024 2:14 PM CDL PROGRAM COORDINATOR) Linked Results Indication ======== Pelvic pain, dysmenorrhea, [...] and mobile Simple left adnexal cyst noted [id number], likely paratubal Coding ====== Procedures ? 49210: US Transvaginal Non OB [employer] PACS 2024 2:14 PM CDL PROGRAM COORDINATOR Narrative [facility] PACS - 2024 4:15 PM CDL PROGRAM COORDINATOR Sabrina Gillis ? 2024 ??4:15 PM Ultrasound has been completed. Acacia Ruano MD PROCEDURE/MA NOR SURGICAL ORDERABLES [facility] [employer] PACS from Last 3 Months Care Teams Meat Products Demonstrator Relationship Specialty Start Date End Date Liban Carbajal DO [address] [place] [address] PCP - General Family Medicine 08/10/24
--- OUTSIDE RECORDS SUMMARY | 2024-11-10 15:46 | XMS_ITS | Referral Summary ---
Author Organization [facility] Address [address] [place] [address] Care Team Providers Care Labeling Strategist Name Role Phone Liban Carbajal DO Primary Care Provider [phone] Source Comments [facility],non-owned Affiliates and Associated Physician Practices is amultiple site organization consisting of ambulatory clinics and hospital sitesin [place], [place], [place] and [place]. This disclosure is being madepursuant to the Care Everywhere program and may not contain all information available regarding this patient. Last updated 18.[facility] Reveal Data Encounters Date Type Department Care Team Description 11/10/2024 Telephone [facility] - COMPRESS MACHINE OPERATOR [address] [facility], [facility] [address] [place] [address] Sharron Beltran MD Question 11/07/2024 Travel 11/07/2024 7:29 AM CODE NUMBER STAMPER Anesthesia Event [facility] [address] [place] [address] Forrest Cortez MD Callen, Isaac J, GLASS BLOWING INSTRUCTOR-SALES SERVICE TECHNICIAN 11/07/2024 7:15 AM CODE NUMBER STAMPER - 11/07/2024 9:45 AM CODE NUMBER STAMPER Surgery [facility] [address] [place], [place] [id number] Sharron Beltran MD DIAGNOSTIC LAPAROSCOPY, EXCISION OF ENDOMETRIOSIS BY DR. BELTRAN 11/07/2024 5:57 AM CODE NUMBER STAMPER - 11/07/2024 12:32 PM CODE NUMBER STAMPER Hospital Encounter [facility] [address] [place] [address] Sharron Beltran MD Surgery General Discharge Disposition: Home or Self Care 10/19/2024 Orders Only [facility] - COMPRESS MACHINE OPERATOR [address] [facility], [facility] [address] [place] [phone] Shayla Wade Che, MD Pelvic pain ; Urinary frequency 2024 Travel 2024 3:00 PM CODE NUMBER STAMPER Office Visit [facility] - COMPRESS MACHINE OPERATOR [address] [facility], [facility] [address] [place] [address] Sharron Beltran MD Dysmenorrhea (Primary Dx); Pelvic pain 2024 1:45 PM CODE NUMBER STAMPER Procedure visit [facility] - COMPRESS MACHINE OPERATOR [address] [place] [address] [address] [place] [address] Dysmenorrhea ; Dyspareunia, female; Chronic female pelvic pain 08/11/2024 Telephone [facility] - COMPRESS MACHINE OPERATOR [address] [place] [address] [address] [place] [address] Shayla Wade Che, MD Patient Requested Call 08/10/2024 Travel 08/10/2024 2:00 PM CDT Office Visit [facility] - COMPRESS MACHINE OPERATOR [address] [place] [address], [facility] [address] [place] [address] Shayla Wade Che, MD Pelvic [...] Comments Blood Pressure 95/60 11/07/2024 12:00 PM CODE NUMBER STAMPER Pulse 66 11/07/2024 12:00 PM CODE NUMBER STAMPER Temperature 36.3 ??C (97.4 ??F) 11/07/2024 10:[address] Respiratory Rate 16 11/07/2024 12:00 PM CODE NUMBER STAMPER Oxygen Saturation 99% 11/07/2024 12:00 PM CODE NUMBER STAMPER Inhaled Oxygen Concentration - - Weight 60.3 kg (133 lb) 11/07/2024 7:10 AM CODE NUMBER STAMPER Height 162.6 cm (5' 4 ) 11/07/2024 7:10 AM CODE NUMBER STAMPER Body Mass Index 22.83 11/07/2024 7:10 AM CODE NUMBER STAMPER Plan of Treatment Upcoming Encounters Date Type Department Care Team (Late st Contact Info) Description 11/24/2024 10:00 AM CODE NUMBER STAMPER Office Visit [facility] - COMPRESS MACHINE OPERATOR [address], [facility] [address] [place] [address] Sharron Beltran MD [address] [place] [id number] Procedures Procedure Name Priority Date/Time Associated Diagnosis Comments CARDIAC RHYTHM STRIP ORDER 11/09/2024 11:49 PM CODE NUMBER STAMPER PATHOLOGY TISSUE EXAM (STL) Routine 11/07/2024 8:35 AM CODE NUMBER STAMPER Diagnosis unknown HCG URINE QUAL POCT NOTIFICATION STAT 11/07/2024 8:01 AM CODE NUMBER STAMPER Pelvic pain ENDOTRACHEAL TUBE NOTE Routine 11/07/2024 7:47 AM CODE NUMBER STAMPER BLOOD TYPE VERIFICATION Routine 11/07/2024 7:16 AM CODE NUMBER STAMPER TYPE + SCREEN PANEL STAT 11/07/2024 7 :10 AM CODE NUMBER STAMPER Pelvic pain CBC W/O DIFFERENTIAL STAT 11/07/2024 7:10 AM CODE NUMBER STAMPER Pelvic pain HCG URINE QUALITATIVE - POCT (IP) INTERFACED Routine 11/07/2024 7:01 AM CODE NUMBER STAMPER SC CYSTOSCOPY,DIL BLADDER,GEN ANESTH 11/07/2024 6:40 AM CODE NUMBER STAMPER Diagnosis unknown Special Needs DR. BELTRAN WORKING FIRST PER OFFICE (STEPHANIE)--10/26 KW SC LAP,DIAGNOSTIC ABDOMEN 11/07/2024 6:40 AM CODE NUMBER STAMPER Diagnosis unknown Special Needs DR. BELTRAN WORKING FIRST PER OFFICE (STEPHANIE)--10/26 KW SC SONO EXAM, TRANSVAGINAL Routine 2024 2:14 PM CODE NUMBER STAMPER Dysmenorrhea from Last 3 Months Results * CARDIAC RHYTHM STRIP ORDER (11/09/2024 11:49 PM CODE NUMBER STAMPER) Narrative 11/09/2024 11:49 PM CODE NUMBER STAMPER Ordered by an unspecified provider. Scanned Document CARDIAC SERVICES ORD ERABLES * PATHOLOGY TISSUE EXAM (STL) (11/07/2024 8:35 AM CODE NUMBER STAMPER) Case Report Surgical Pathology Report ? Case: [id number] ? Authorizing Provider: ??Sharron Beltran MD ? [...] FOSSA ? 11/08/2024 9:[address] [facility] Final Diagnosis Peritoneum, right ovarian fossa, biopsy (A) - No histopathologic abnormality Peritoneum, right pararectal, biopsy (B) - Endometriosis Fallopian tube, left, paratubal cyst, excision (C) - Paratubal cyst Peritoneum, left ovarian fossa, biopsy (D) - Endometriosis 11/08/2024 9:[address] [facility] Clinical History The patient is a 24-year-old woman. Operative procedure: diagnostic laparoscopy, excision of endometriosis. 11/08/2024 9:[address] [facility] Gross Description The specimens [...] D1. LJ 11/08/2024 9:[address] [facility] Microscopic Description Microscopic examination substantiates the above diagnosis. 11/08/2024 9:[address] [facility] Pathologist Location at [facility] 11/08/2024 9:[address] [facility] Disclaimer All histochemical and/or immunohistochemical results are interpreted with controls that demonstrate appropriate staining reactions before reporting results. Note on use of immunocytochemistry reagents: This test was developed and its performance characteristic determined by [facility], Department of Laboratory Medicine. It has not [...] be interpreted with caution. 11/08/2024 9:[address] [facility] Embedded Images 11/08/2024 9:[address] [facility] Pathology/Cytology TISSUE SPECIMEN / Unknown 11/07/2024 8:35 AM CODE NUMBER STAMPER 11/07/2024 10:05 AM CODE NUMBER STAMPER Comment:Pre-op diagnosis: Diagnosis unknown [R69] Miscellaneous samples (specimen) TISSUE SPECIMEN / Unknown 11/07/2024 8:48 AM CODE NUMBER STAMPER 11/07/2024 10:05 AM CODE NUMBER STAMPER Comment:Pre-op diagnosis: Diagnosis unknown [R69] Miscellaneous samples (specimen) CYST TISSUE / Unknown 11/07/2024 8:50 AM CODE NUMBER STAMPER 11/07/2024 10:05 AM CODE NUMBER STAMPER Comment:Pre-op diagnosis: Diagnosis unknown [R69] Miscellaneous samples (specimen) MISCELLANEOUS SAMPLES / Unknown 11/07/2024 8:56 AM CODE NUMBER STAMPER 11/07/2024 10:05 AM CODE NUMBER STAMPER Comment:Pre-op diagnosis: Diagnosis unknown [R69] Sharron Beltran MD LAB - PATHOLOGY/CYTO LOGY ORDERABLES [facility] [address] [place] [address] * HCG URINE QUAL POCT NOTIFICATION (11/07/2024 8:01 AM CODE NUMBER STAMPER) Comment Notification Label Only - See Separate Report 11/07/2024 8:01 AM CODE NUMBER STAMPER [facility] Urine URINE / Unknown 6:37 AM CODE NUMBER STAMPER Sharron Beltran MD LAB - URINALYSIS ORD ERABLES Performing Organization Address [facility] Co de Phone Number [facility] [address] [place] [address] * ETT LINE PERFORMABLE (11/07/2024 7:47 AM CODE NUMBER STAMPER) Narrative Aubrey Burroughs APRN-CRNA - 11/07/2024 7:47 AM CODE NUMBER STAMPER Aubrey Bruroughs APRN-CRNA ? 11/07/2024 ??7:47 AM Endotracheal Tube Placement: ? Patient Location: OR. Procedure: intubation (79898) Procedure Section: ?? Sedation: under general anesthesia. [...] * BLOOD TYPE VERIFICATION (11/07/2024 7:16 AM CODE NUMBER STAMPER) ABO Rh O POS 11/07/2024 7:5 9 AM CODE NUMBER STAMPER [facility] Blood Bank BLOOD SPECIMEN / Unknown Venipuncture / Unknown 11/07/2024 7:16 AM CODE NUMBER STAMPER 11/07/2024 7:22 AM CODE NUMBER STAMPER Shayla Wade MD LAB - BLOOD BANK ORD ERABLES [facility] [address] [place] [address] * TYPE + SCREEN PANEL (11/07/2024 7:10 AM CODE NUMBER STAMPER) ABO Rh O POS 11/07/2024 7:59 AM CODE NUMBER STAMPER [facility] Comment:No history; collect retype. Antibody Screen NEG 7:59 AM CODE NUMBER STAMPER [facility] Blood Bank BLOOD SPECIMEN / Unknown Venipuncture / Unknown 11/07/2024 7:10 AM CODE NUMBER STAMPER 11/07/2024 7:14 AM CODE NUMBER STAMPER Sharron Beltran MD LAB - BLOOD BANK ORD ERABLES Performing Organization Address City/[facility]/ZIP Co de Phone Number [facility] [address] [place] [address] * CBC W/O DIFFERENTIAL (11/07/2024 7:10 AM CODE NUMBER STAMPER) WBC 6.5 4.0 - 10.7 x10E9/L 11/07/2024 7:[address] [facility] RBC Count 4.55 3.90 - 5.20 x10E12/L 11/07/2024 7:[address] [facility] Hemoglobin 13.2 11.9 - 15.8 g/dL 11/07/2024 7:[address] [facility] Hematocrit 39.9 34.8 - 46.1 % 11/07/2024 7:[address] [facility] MCV 87.7 80.0 - 98.0 fL 11/07/2024 7:[address] [facility] MCH 29.0 26.7 - 33.6 pg 11/07/2024 7:[address] [facility] MCHC 33.1 31.7 - 36.3 g/dL 11/07/2024 7:[address] [facility] RDW-CV 12.4 11.3 - 14.8 % 11/07/2024 7:[address] [facility] Platelet Count 201 150 - 420 x10E9/L 11/07/2024 7:[address] [facility] MPV 10.7 7.8 - 11.4 fL 11/07/2024 7:[address] [facility] Blood BLOOD SPECIMEN / Unknown Venipuncture / Unknown 11/07/2024 7:10 AM CODE NUMBER STAMPER 11/07/2024 7:15 AM CODE NUMBER STAMPER Forrest Cortez MD LAB - HEMATOLOGY ORD ERABLES Performing Organization Address [facility]/ZIP Co de Phone Number [facility] [address] [place] [phone] * HCG URINE QUALITATIVE - POCT (IP) INTERFACED (11/07/2024 7:01 AM CODE NUMBER STAMPER) HCG Qual Urine Negative Negative 11/07/2024 7:[address] [facility] Urine URINE / Unknown 11/07/2024 7 :01 AM CODE NUMBER STAMPER 11/07/2024 7:07 AM CODE NUMBER STAMPER Sharron Beltran MD LAB - POINT OF CARE ORDERABLES Performing Organization Address [facility] Co de Phone Number [facility] [address] [place] [id number] * SC SONO EXAM, TRANSVAGINAL (2024 2:14 PM CODE NUMBER STAMPER) Linked Results Indication ======== Pelvic pain, dysmenorrhea, [...] and mobile Simple left adnexal cyst noted [id number], likely paratubal Coding ====== Procedures ? [id number]: US Transvaginal Non OB [facility] 2024 2:14 PM CODE NUMBER STAMPER Narrative [facility] - 2024 4:15 PM CODE NUMBER STAMPER Sabrina Gillis ? 2024 ??4:15 PM Ultrasound has been completed. Acacia Ruano MD PROCEDURE/NM NOR SURGICAL ORDERABLES [facility] [facility] from Last 3 Months Care Teams Labeling Strategist Relationship Specialty Start Date End Date Liban Carbajal DO [address] [place] [id number] PCP - General Family Medicine 08/10/24
--- OUTSIDE RECORDS SUMMARY | 2024-11-10 15:48 | XMS_ITS | Clinical Summary ---
Author Organization [facility] Address [address] [place] [address]. [place] [address] [place] [address] Care Team Providers Care Child Abuse Worker Name Role Phone Unavailable Primary Care Provider Unavailabl e Social History Tobacco Use Types Packs/Day Years Used Date Smoking Tobacco: Never Assessed Comments Unknown Sex and Gender Information Value Date Recorded Sex Assigned at Not on file Legal Sex Female 9:05 PM [employer]CHO[employer] RESOURCE OFFICER Gender Identity Not on file Sexual Orientation [...]
[2024-11-10] MEDS: ONDANSETRON INJ 4 MG/2 ML VIAL IV PUSH (16:11)
[2024-11-10] MEDS: SODIUM CHLORIDE 0.9% IV 1,000 ML 999 ML IV CONT ×2 (16:11→17:54)
[2024-11-10 16:28] LABS: BEDSIDEPREGUCG Negative (Negative)
[2024-11-10] MEDS: METOCLOPRAMIDE HCL INJ 10 MG/2 ML VIAL IV PUSH (17:54)
[2024-11-10] MEDS: HYDROmorphone HCL INJ (*CRX) 1 MG/ML SYR 0.5 MG IV PUSH (17:56)
== END 2024-11-10 19:24 | disposition home or self-care (01) ==
PROVIDERS: Physician Assistant; Emergency Provider Emergency Medicine; PCP Family Medicine
DX: R11.2 Nausea with vomiting, unspecified (principal); R10.9 Unspecified abdominal pain
CPT/HCPCS: 36415; 74177; 80053; 81001; 81025; 83690; 85025; 87086; 96361; 96374; 96375; 99284; J1171; J2405; J2765; J7030; Q9967